=== PATIENT | female | born 1940 | race Caucasian/White ===

== ENCOUNTER 2022-05-02 03:10 | Inpatient (IN) | payer OTHER ==
[~2022-05-02] VITALS: Ht 154.9 cm; Wt 70.1 kg
[2022-05-02] MEDS ORDERED: ALBUTEROL SULF 2.5 MG/0.5ML(0.5%) NEB SOLN NEB ONE ×2 (03:15→03:30)
[2022-05-02] MEDS ORDERED: IPRATROPIUM BROM 0.5 MG/2.5ML INH SOL NEB ONE (03:15)
[2022-05-02] MEDS ORDERED: ALBUTEROL MEDNEB 2.5 mg/3ml NEB ONE (03:18)
[2022-05-02 04:59] LABS: Basophils # (auto) 0 10 ^3/uL (0-0.2); Basophils % (auto) 0.6 % (0.0-2.0); Eosinophils # (auto) 0.1 10 ^3/uL (0-0.8); Eosinophils % (auto) 0.7 % (0.0-7.0); Hematocrit 35.3 % (36.0-46.0); Hemoglobin 12.3 g/dL (12.2-16.2); Lymphocytes # (auto) 1.4 10 ^3/uL (0.4-5.4); Lymphocytes % (auto) 20.3 % (10.0-50.0); Mean Corpuscular Hemoglobin 32.7 pg (28.0-32.0); Mean Corpuscular Hgb Conc. 34.8 g/dL (32.0-36.0); Mean Corpuscular Volume 93.9 fL (80.0-100.0); Monocytes # (auto) 0.5 10 ^3/uL (0-1.3); Neutrophils # (auto) 4.8 10 ^3/uL (1.6-8.6); Neutrophils % (auto) 70.4 % (37.0-80.0); Red Blood Cells 3.76 10^6/uL (4.0-5.20); White Blood Cell 6.9 10^3/uL (4.4-10.8)
[2022-05-02 05:55] LABS: Albumin 3.6 g/dL (3.4-5.0); Calcium 8.8 mg/dL (8.5-10.1); Potassium 3.5 mmol/L (3.5-5.1)
[2022-05-02 06:00] LABS: BUN/Creatinine Ratio 17.8; Total Protein 6.2 g/dL (6.4-8.2)
[2022-05-02] MEDS ORDERED: FUROSEMIDE 40 MG/4 ML VIAL IV ONE (07:00)
[2022-05-02] MEDS ORDERED: ENOXAPARIN SOD 80 MG/0.8ML SYRINGE SC ONE (07:00)
[2022-05-02 08:33] LABS: Urine Bacteria NONE SEEN /hpf (None Seen); Urine Blood Negative /uL (Negative); Urine Specific Gravity 1.012 (1.001-1.035); Urine WBC 2 /hpf (0 - 5)
[2022-05-02] MEDS ORDERED: ROSU1TAB14 PO (12:12)
[2022-05-02] MEDS ORDERED: CARV20CA10 PO (12:12)
[2022-05-02] MEDS ORDERED: LOS25T PO (12:12)
[2022-05-02] MEDS ORDERED: MORPHINE SULFATE INJ 2 MG/ml SYRG IV PRN (12:15)
[2022-05-02] MEDS ORDERED: POTASSIUM EFFERVESENT TAB 25 MEQ PO ONE (12:15)
[2022-05-02] MEDS ORDERED: NITROGLYCERIN 0.4 MG SL TAB SL PRN (12:15)
[2022-05-02] MEDS ORDERED: NICOTINE 7MG/24HR TOPICAL PATCH TD ONE (12:15)
[2022-05-02 12:38] LABS: Cholesterol 88 mg/dL (< 200)
[2022-05-02 12:40] LABS: HDL Cholesterol 43 mg/dL (40-59); LDL Cholesterol 40 mg/dL (< 100); Triglycerides 57 mg/dL (< 150)
[2022-05-02] MEDS ORDERED: DEXTROSE (50%) 50ML SYRG IV PRN (15:15)
[2022-05-02] MEDS: ACCU-CHEK COMFORT CURVE STRIP VI SCH ×2 (17:31→22:09)
[2022-05-02] MEDS: InsuLIN REG 1unit/0.01ml Soln (100units/ml) SC SCH ×2 (17:35→22:00)
[2022-05-02] MEDS: FUROSEMIDE 20 MG/2 ML VIAL IV SCH (17:36)
[2022-05-02] MEDS: CARVEDILOL 3.125 MG TAB PO SCH (22:00)
[2022-05-03 05:26] LABS: Basophils # (auto) 0 10 ^3/uL (0-0.2); Basophils % (auto) 0.8 % (0.0-2.0); Eosinophils # (auto) 0.1 10 ^3/uL (0-0.8); Eosinophils % (auto) 0.9 % (0.0-7.0); Hematocrit 34.2 % (36.0-46.0); Hemoglobin 11.6 g/dL (12.2-16.2); Lymphocytes # (auto) 2.5 10 ^3/uL (0.4-5.4); Lymphocytes % (auto) 41.5 % (10.0-50.0); Mean Corpuscular Hgb Conc. 33.9 g/dL (32.0-36.0); Mean Corpuscular Volume 94.5 fL (80.0-100.0); Monocytes # (auto) 0.7 10 ^3/uL (0-1.3); Monocytes % (auto) 11.1 % (0.0-12.0); Neutrophils # (auto) 2.7 10 ^3/uL (1.6-8.6); Neutrophils % (auto) 45.7 % (37.0-80.0); Nucleated Red Blood Cells % 0.1 %; Red Blood Cells 3.62 10^6/uL (4.0-5.20); Red Cell Distribution Width 15.2 % (11.8-14.3); White Blood Cell 5.9 10^3/uL (4.4-10.8)
[2022-05-03] MEDS: FUROSEMIDE 20 MG/2 ML VIAL IV SCH ×2 (05:56→17:38)
[2022-05-03 06:01] LABS: Calcium 8.8 mg/dL (8.5-10.1); Potassium 3.5 mmol/L (3.5-5.1)
[2022-05-03] MEDS: EMPAGLIFLOZIN 10 MG TAB PO SCH ×2 (06:31→06:38)
[2022-05-03] MEDS: ACCU-CHEK COMFORT CURVE STRIP VI SCH ×5 (06:32→21:56)
[2022-05-03] MEDS: InsuLIN REG 1unit/0.01ml Soln (100units/ml) SC SCH ×4 (06:38→21:57)
[2022-05-03] MEDS ORDERED: REGADENOSON 0.4 MG/5 ML SYRG IV ONE (09:00)
[2022-05-03] MEDS: CARVEDILOL 3.125 MG TAB PO SCH ×2 (09:59→21:29)
[2022-05-03] MEDS ORDERED: FUROSEMIDE 20 MG/2 ML VIAL IV SCH (10:00)
[2022-05-03] MEDS: POTASSIUM CHL 10 Meq TABLET PO SCH (10:00)
[2022-05-03] MEDS: LOSARTAN POTASSIUM 25 MG TAB PO SCH (10:00)
[2022-05-03] MEDS ORDERED: CARVEDILOL PHOSPHATE PO SCH (10:00)
[2022-05-03] MEDS ORDERED: PATIENTS OWN MEDICATION (Rosuvastatin Calcium 1 TAB) PO SCH (10:00)
[2022-05-03] MEDS: NICOTINE 7MG/24HR TOPICAL PATCH TD SCH (10:00)
[2022-05-03] MEDS: ENOXAPARIN SOD 40 MG/0.4 ML SYRINGE SC SCH (10:04)
[2022-05-03] MEDS: ASPirin 81 mg TAB PO SCH (10:06)
[2022-05-03 13:03] VITALS: BP 109/61
[2022-05-03 20:00] VITALS: BP 89/50
[2022-05-03 22:00] VITALS: BP 106/42
[2022-05-03] MEDS ORDERED: CARV20CA10 PO (23:23)
[2022-05-03] MEDS ORDERED: MELO1TAB56 PO (23:23)
[2022-05-03] MEDS ORDERED: POTA10TA51 PO (23:23)
[2022-05-03] MEDS ORDERED: ROSU20TA14 PO (23:23)
[2022-05-03] MEDS ORDERED: NITR0.4S29 SL (23:23)
[2022-05-03] MEDS ORDERED: FURO40TA4 PO (23:23)
[2022-05-03] MEDS ORDERED: ASPI-543 PO (23:23)
[2022-05-03] MEDS ORDERED: ALBUAER3 IN (23:23)
[2022-05-04] VITALS (11 sets, daily range): BP systolic 94–131; BP diastolic 47–74
[2022-05-04] MEDS: FUROSEMIDE 20 MG/2 ML VIAL IV SCH ×2 (05:29→18:00)
[2022-05-04] MEDS: EMPAGLIFLOZIN 10 MG TAB PO SCH ×2 (06:28→06:38)
[2022-05-04 06:42] LABS: INR 1.13 (0.9-1.15); Partial Thromboplastin Time 33.1 sec (24.6-33.4)
[2022-05-04] MEDS: ACCU-CHEK COMFORT CURVE STRIP VI SCH ×4 (06:55→22:17)
[2022-05-04] MEDS: InsuLIN REG 1unit/0.01ml Soln (100units/ml) SC SCH ×4 (06:55→22:00)
[2022-05-04 06:57] LABS: Anion Gap 8 (5-15); BUN/Creatinine Ratio 20.9; Blood Urea Nitrogen 14 mg/dL (7-18); Carbon Dioxide 26 mmol/L (21-32); Chloride 109 mmol/L (98-107); GFR African American 108 mL/min; GFR Non-African American 90 mL/min; Glucose 110 mg/dL (74-106); Potassium 3.3 mmol/L (3.5-5.1); Sodium 143 mmol/L (136-145)
[2022-05-04] MEDS ORDERED: POTASSIUM CHL 20 Meq TABLET PO ONE ×2 (09:30→15:00)
[2022-05-04] MEDS: POTASSIUM CHL 10 Meq TABLET PO SCH (10:00)
[2022-05-04] MEDS: CARVEDILOL 3.125 MG TAB PO SCH ×2 (10:00→22:00)
[2022-05-04] MEDS: NICOTINE 7MG/24HR TOPICAL PATCH TD SCH (10:00)
[2022-05-04] MEDS: ASPirin 81 mg TAB PO SCH (10:00)
[2022-05-04] MEDS: ENOXAPARIN SOD 40 MG/0.4 ML SYRINGE SC SCH (10:00)
[2022-05-04] MEDS: LOSARTAN POTASSIUM 25 MG TAB PO SCH (10:00)
[2022-05-04 10:50] LABS: Basophils # (auto) 0.1 10 ^3/uL (0-0.2); Basophils % (auto) 1.2 % (0.0-2.0); Eosinophils # (auto) 0.1 10 ^3/uL (0-0.8); Eosinophils % (auto) 1.4 % (0.0-7.0); Hematocrit 36.5 % (36.0-46.0); Hemoglobin 12.4 g/dL (12.2-16.2); Lymphocytes % (auto) 45.1 % (10.0-50.0); Mean Corpuscular Hemoglobin 31.6 pg (28.0-32.0); Monocytes # (auto) 0.5 10 ^3/uL (0-1.3); Monocytes % (auto) 12.5 % (0.0-12.0); Neutrophils # (auto) 1.7 10 ^3/uL (1.6-8.6); Neutrophils % (auto) 39.8 % (37.0-80.0); Nucleated Red Blood Cells % 0.3 %; Red Blood Cells 3.92 10^6/uL (4.0-5.20); Red Cell Distribution Width 15.2 % (11.8-14.3); White Blood Cell 4.3 10^3/uL (4.4-10.8)
[2022-05-04] MEDS ORDERED: LIDOCAINE 2%HCL (LOCAL ANESTH.) INJ 20ML MDV ONE (15:41)
[2022-05-04] MEDS ORDERED: IODIXANOL 320MG/ML 100ML BTL IV ONE (15:47)
[2022-05-04] MEDS ORDERED: SODIUM CHL 0.9% 0 ML ONE (16:02)
[2022-05-04] MEDS ORDERED: ANGIOMAX 250 MG VIAL IV ONE (16:02)
[2022-05-04] MEDS ORDERED: MIDAZOLAM HCL 2MG/2ML 2ml VIAL (1mg/ml) ONE (16:02)
[2022-05-04] MEDS ORDERED: fentaNYL CITRATE 100 MCG/2 ML VL ONE (16:03)
[2022-05-05 05:00] VITALS: BP 136/47
[2022-05-05] MEDS: FUROSEMIDE 20 MG/2 ML VIAL IV SCH ×2 (06:00→18:00)
[2022-05-05] MEDS: ACCU-CHEK COMFORT CURVE STRIP VI SCH ×3 (06:29→17:00)
[2022-05-05] MEDS: InsuLIN REG 1unit/0.01ml Soln (100units/ml) SC SCH ×3 (06:29→17:00)
[2022-05-05] MEDS: EMPAGLIFLOZIN 10 MG TAB PO SCH (06:29)
[2022-05-05] MEDS: ASPirin 81 mg TAB PO SCH (08:59)
[2022-05-05] MEDS: POTASSIUM CHL 10 Meq TABLET PO SCH (09:00)
[2022-05-05] MEDS: ENOXAPARIN SOD 40 MG/0.4 ML SYRINGE SC SCH (09:00)
[2022-05-05 09:08] VITALS: BP 116/50
[2022-05-05] MEDS: NICOTINE 7MG/24HR TOPICAL PATCH TD SCH (10:00)
[2022-05-05] MEDS: LOSARTAN POTASSIUM 25 MG TAB PO SCH (10:00)
[2022-05-05] MEDS: CARVEDILOL 3.125 MG TAB PO SCH (10:00)
[2022-05-05 10:29] LABS: BUN/Creatinine Ratio 20.7; Potassium 3.7 mmol/L (3.5-5.1)
[2022-05-05 13:00] VITALS: BP 91/51
[2022-05-05 16:56] VITALS: BP 136/49
[2022-05-05 17:00] VITALS: BP 97/57
== END 2022-05-05 20:30 | disposition short-term general hospital (02) | DRG 282 ==
LOC: ER 03:10 → TELE 12:06 → TELE-CENTR 05-03 11:55 → TELE-E-ADS 05-03 12:30 → TELE-CENTR 05-03 19:56
PROVIDERS: ADMIT Registered Nurse; ATTEND Internal Medicine
PROC: 4A023N8 Measurement of Cardiac Sampling and Pressure, Bilateral, Percutaneous Approach (ICD-10-PCS; principal; 2022-05-04)
PROC: B211YZZ Fluoroscopy of Multiple Coronary Arteries using Other Contrast (ICD-10-PCS; 2022-05-04)
PROC: B215YZZ Fluoroscopy of Left Heart using Other Contrast (ICD-10-PCS; 2022-05-04)
DX: I50.43 Acute on chronic combined systolic (congestive) and diastolic (congestive) heart failure (principal); I21.A1 Myocardial infarction type 2; E78.5 Hyperlipidemia, unspecified; E11.9 Type 2 diabetes mellitus without complications; I35.0 Nonrheumatic aortic (valve) stenosis; I25.10 Atherosclerotic heart disease of native coronary artery without angina pectoris; Z20.822 Contact with and (suspected) exposure to COVID-19; R04.0 Epistaxis; Z96.649 Presence of unspecified artificial hip joint; Z72.0 Tobacco use; Z98.61 Coronary angioplasty status; Z71.6 Tobacco abuse counseling
CPT/HCPCS: 36415; 71045; 71275; 80048; 80053; 80061; 81001; 82306; 82962; 83036; 83735; 83880; 84443; 84484; 85025; 85379; 85610; 85730; 86850; 86900; 86901; 87426; 87804; 93005; 93306; 93460; 93970; 94640; 96372; 96374; 99152; 99153; 99291; C1751; G0378; J1815; J2250; Q9967

== ENCOUNTER 2024-12-16 20:52 | Inpatient (IN) | payer OTHER ==
[~2024-12-16] VITALS: Ht 157.5 cm; Wt 62.6 kg
[~2024-12-16 20:52] MED LIST: ALBUAER3 IN; ASPI-543 PO; CARV-217 PO; CARV20CA10 PO; DULO1CAP4 PO; FURO40TA4 PO; LOS25T PO; MELO15TA29 PO; NITR0.4S29 SL; POTA-36 PO; ROSU20TA14 PO; ROSU20TA56 PO
[2024-12-16 21:45] VITALS: O2SAT 95
[2024-12-16] MEDS: methylPREDNISolone SOD SUCC 125 MG/2 ML VL IV ONE (21:57)
[2024-12-16 22:05] LABS: Hematocrit 35.0 % (36.0-46.0); Hemoglobin 11.8 g/dL (12.2-16.2); Mean Corpuscular Hemoglobin 29.4 pg (28.0-32.0); Mean Corpuscular Volume 87.2 fL (80.0-100.0); Nucleated Red Blood Cells % 0.1 %
[2024-12-16] MEDS: IPRATROPIUM BROM 0.5 MG/2.5ML INH SOL NEB ONE (22:10)
[2024-12-16] MEDS: ALBUTEROL SULF 2.5 MG/0.5ML(0.5%) NEB SOLN NEB ONE (22:10)
[2024-12-16 22:14] LABS: Sodium 144 mmol/L (136-145)
[2024-12-16 22:15] LABS: Anion Gap 10 (5-15); Calcium 8.3 mg/dL (8.7-10.4); Carbon Dioxide 25 mmol/L (20-31); Chloride 109 mmol/L (98-107); Potassium 3.0 mmol/L (3.5-5.1)
[2024-12-16 22:23] LABS: BUN/Creatinine Ratio 7.8 (10.0-20.0); Blood Urea Nitrogen < 5 mg/dL (9-23); Glucose 138 mg/dL (74-106)
--- NOTE | 2024-12-16 23:02 | DVH ---
CHEST RADIOGRAPH Indication: sob Technique: 1 view Comparison: CXR1 on DOS: 05/02/22, CHEST XRAY 1 VIEW on DOS: 05/02/22 FINDINGS: Lines and Tubes: External leads. Lungs/Pleura: The right hand overlies the lower chest. Persistent dense mid to basilar interstitial opacities. No focal consolidation. No evident pleural abnormality. Cardiomediastinum: Upper normal heart size. Aortic atherosclerosis. Other: No acute osseous abnormality. IMPRESSION: No acute cardiopulmonary abnormality within the exam limitation. Chronic dense bilateral interstitial opacities may represent edema or fibrosis given similar appearance to 2022.
--- NOTE | 2024-12-16 23:11 | ED.PDOC ---
History of Present Illness HPI Comments 84 y/o F presents with c/c left sided chest and upper abdominal pain, nausea, and vomiting. Significant history of aortic stenosis, CAD, CHF, DM, HLD, NSTEMI II, PTCA, LHC, and tobacco cigarette use. Symptoms began, suddenly and unprovoked, at a 1730, this evening. No modifying factors. No reported recent tr auma, injuries, sick contact, travel, stressors, strenuous activities, or pertinent history or events. Denial of any shortness of breath, palpitations, nausea, vomiting, or further associated symptoms. Chief Complaint: Chest Pain Time Seen by MD: 21:30 Reviewed Notes: Nurses Notes, Medications, Allergies Allergies: Coded Allergies: NO KNOWN ALLERGIES (Unverified , 05/02/22) Home Meds Reported Medications Carvedilol Phosphate (Coreg Cr) 20 Mg Cap, 20 MG PO DAILY, CAP 05/03/22 Rosuvastatin Calcium (Crestor) 20 Mg Tab, 1 TAB PO DAILY, #90 TAB 1 Refill 05/03/22 Meloxicam (Meloxicam) 15 Mg Tab, 15 MG PO DAILY, TAB 05/03/22 Potassium Chloride (POTASSIUM CHLORIDE CR) 10 Meq Tb, 10 MEQ PO, TAB 05/03/22 Furosemide (Furosemide) 40 Mg Tab, 40 MG PO, TAB 05/03/22 Nitroglycerin (NTROSTAT SUBLINGUAL) 0.4 Mg Sl, 0.4 MG SL PRN, TAB *MAY REPEAT EVERY 5 MINUTES X 3 TOTAL IF NO RELIEF, INITIATE ANALGESIC THERAPY. NOTIFY PHYSICIAN *Do not crush. 05/03/22 Albuterol Sulfate (VENTOLIN MDI) 90 Mcg Ih, 90 MCG IN Q6HP PRN for Difficulty to breath for 30 Days, MCG 05/03/22 Aspirin (Aspir-Low) 81 Mg Tab, 81 MG PO DAILY for 30 Days, MG 05/03/22 Losartan Potassium (Losartan Potassium) 25 Mg Tab, 0.5 TAB PO DAILY 05/02/22 Rosuvastatin Calcium (Rosuvastatin Calcium) 20 Mg Tab, 1 TAB PO DAILY 05/02/22 Carvedilol Phosphate (Coreg Cr) 20 Mg Cap, 1 CAP PO DAILY 05/02/22 Information Source: Patient Mode of Arrival: Ambulatory Severity: Moderate Timing: Hours Duration: Since onset Prehospital treatment: None Past Medical History PAST MEDICAL HISTORY: CAD, CHF (chronic systolic/diastolic heart failure- Lasix), DM, High Lipids, [place] (NSTEMI II ) Past Medical History (Other): Aortic stenosis Surgical History: PTCA Surgical History (Other): C DINING ROOM MAID History: Denies all DINING ROOM MAID Hx Family History Family History: Unknown Social History Smoker: Cigarettes Alcohol: Denies ETOH Use Drugs: Denies Drug Use Lives In: Home All Other Systems: Reviewed and Negative (Comprehensive systems review obtained and negative except for what is stated in the HPI) Physical Exam General Appearance: Moderate Distress HEENT: Normal ENT Inspection, Pharynx Normal, TMs Normal Neck: Full Range of Motion, Non-Tender, Normal, Normal Inspection Respiratory: Other (Coarse breath sounds) Cardiovascular: Tachycardia Breast Exam: Deferred Gastrointestinal: No Organomegaly, Non Tender, No Pulsatile Mass, Normal Bowel Sounds, Soft Genitalia: Deferred Pelvic: Deferred Rectal: Deferred Extremities: No calf tenderness, Normal capillary refill, Non-tender, No pedal edema Musculoskeletal : Apperance: Normal Neurologic: Alert, 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 Was a procedure done?: No EKG EKG #1: Pulse Rate (adult): 103 [place]: Normal Cardiac Rhythm: ST Block: None Hypertrophy: None ST: Normal EKG #2: Pulse Rate (adult): 88 [place]: Normal Cardiac Rhythm: NSR Block: None Hypertrophy: None ST: Normal Differential Dx Considerations may include: [place], PE, ACS, URI, PNA, angina, anxiety, acute CHF exacerbation, among others X-Ray, Labs, Meds, VS Vital Signs Date Time Temp Pulse Resp B/P (MAP) Pulse Ox O2 Delivery O2 Flow Rate FiO2 12/16/24 23:52 89 12/16/24 23:11 88 12/16/24 22:00 18 100 Nasal Cannula* 4 36 12/16/24 21:49 88 12/16/24 21:45 97.5 96 14 145/76 (99) 95 97.5 12/16/24 21:45 98.2 96 14 145/76 (99) 95 98.2 12/16/24 21:45 95 Nasal Cannula* 6 44 12/16/24 21:36 103 12/16/24 20:59 103 12/16/24 20:55 98.3 101 18 113/68 84 98.3 Lab Test 12/16/24 23:08 12/16/24 21:52 Range/Units Troponin I High Sensitivity 66 *H 44 *H </=34 ng/L White Blood Count 5.0 4.4-10.8 10^3/uL Red Blood Count 4.01 4.0-5.20 10^6/uL Hemoglobin 11.8 L 12.2-16.2 g/dL Hematocrit 35.0 L 36.0-46.0 % Mean Corpuscular Volume 87.2 80.0-100.0 fL Mean Corpuscular Hemoglobin 29.4 28.0-32.0 pg Mean Corpuscular Hemoglobin Concent 33.7 32.0-36.0 g/dL Red Cell Distribution Width 16.7 H 11.8-14.3 % Platelet Count 160 140-450 10^3/uL Mean Platelet Volume 8.8 6.9-10.8 fL Neutrophils (%) (Auto) 63.5 37.0-80.0 % Lymphocytes (%) (Auto) 23.2 10.0-50.0 % Monocytes (%) (Auto) 12.1 H 0.0-12.0 % Eosinophils (%) (Auto) 0.3 0.0-7.0 % Basophils (%) (Auto) 0.9 0.0-2.0 % Neutrophils # (Auto) 3.2 1.6-8.6 10 ^3/uL Lymphocytes # (Auto) 1.2 0.4-5.4 10 ^3/uL Monocytes # (Auto) 0.6 0-1.3 10 ^3/uL Eosinophils # (Auto) 0 0-0.8 10 ^3/uL Basophils # (Auto) 0 0-0.2 10 ^3/uL Nucleated Red Blood Cells 0.1 % Sodium Level 144 136-145 mmol/L Potassium Level 3.0 L 3.5-5.1 mmol/L Chloride Level 109 H 98-107 mmol/L Carbon Dioxide Level 25 20-31 mmol/L Anion Gap 10 5-15 Blood Urea Nitrogen < 5 L 9-23 mg/dL Creatinine 0.64 0.550-1.02 mg/dL Glomerular Filtration Rate Calc 87 >90 mL/min BUN/Creatinine Ratio 7.8 L 10.0-20.0 Serum Glucose 138 H 74-106 mg/dL Calcium Level 8.3 L 8.7-10.4 mg/dL Current Medications Medications (Trade) Dose Ordered Sig/Jeff Route Start Time Stop Time Status Last Admin Methylprednisolone Sodium Succinate (Solu Medrol) 125 mg ONCE ONCE IV 12/16/24 21:45 12/16/24 21:46 DC 12/16/24 21:57 Albuterol (Ventolin Medneb) 5 mg ONCE ONCE NEB 12/16/24 21:45 12/16/24 21:46 DC 12/16/24 22:10 Ipratropium [place] (Atrovent Medneb) 0.5 mg ONCE ONCE NEB 12/16/24 21:45 12/16/24 21:46 DC 12/16/24 22:10 Enoxaparin Sodium (Lovenox) 60 mg ONCE ONCE SC 12/17/24 00:00 12/17/24 00:01 DC 12/17/24 00:07 [place] [address] Ph: [phone] DIAGNOSTIC IMAGING Diagnostic Imaging Report : [id number] Signed PATIENT: KATHY ZAPATA ACCT: [id number] UNIT: [id number] : 1940 LOC: ER ROOM / BED: / AGE / SEX: 84 / F ADM STATUS: REG ER SERVICE 33 ORDERING PHYSICIAN: PHILLIP REZA MD PROCEDURE(s): CXRP - CHEST PORTABLE REASON: sob ORDER NUMBER(s): [id number], ACCESSION NUMBER(s): [id number] CHEST RADIOGRAPH Indication: sob Technique: 1 view Comparison: CXR1 on DOS: 05/02/22, CHEST XRAY 1 VIEW on DOS: 05/02/22 FINDINGS: Lines and Tubes: External leads. Lungs/Pleura: The right hand overlies the lower chest. Persistent dense mid to basilar interstitial opacities. No focal consolidation. No evident pleural abnormality. Cardiomediastinum: Upper normal heart size. Aortic atherosclerosis. Other: No acute osseous abnormality. IMPRESSION: No acute cardiopulmonary abnormality within the exam limitation. Chronic dense bilateral interstitial opacities may represent edema or fibrosis given similar appearance to 2022. ATED BY: CLARISSE DILLARD MD DICTATED DATE/TIME: 12/16/242258 SIGNED BY: CLARISSE DILLARD MD SIGNED DATE/TIME: 12/16/242258 CC: Patient alert. Complaining of shortness a breath. Placed on oxygen. Answering questions. History of coronary artery disease. Was given steroid. Was given breathing treatment. Cardiac marker slightly elevated. EKG does show changes. Cardiology consultation. Explained to the patient. Continue monitoring. [facility] approved inpatient admission [id number]. Time of 1ST Reevaluation: 22:00 Reevaluation 1ST: Unchanged Patient Education/Counseling: Diagnosis, Treatment, Other (need for admission ) Family Education/Counseling: No Family Present SEPSIS Sepsis Screen Date sepsis recognized/suspect: Dec 16, 2024 Time Sepsis recognized/suspect: 2144 Recent Procedure: No On Antibiotic Therapy: No Respiratory Rate >20: No Heart Rate >90: No Temp<36 C (96.8 F) or >38.3 C: No SBP <90 or MAP <65 mmHG: No New Acute Mental Status Change: No Is the patient on CPAP, BIPAP,: No Physician Orders Chest Portable (12/16/24 21:34) Urinalysis (12/16/24 21:34) Troponin-I Hs (12/17/24 00:34) Electrocardigram (12/16/24 21:57) Electrocardigram (12/16/24 22:57) Electrocardigram (12/17/24 00:57) * Cardiology Consult (12/16/24 23:58) Vital Signs Date Time Temp Pulse Resp B/P (MAP) Pulse Ox O2 Delivery O2 Flow Rate FiO2 12/16/24 23:52 89 12/16/24 23:11 88 12/16/24 22:00 18 100 Nasal Cannula* 4 36 12/16/24 21:49 88 12/16/24 21:45 97.5 96 14 145/76 (99) 95 97.5 12/16/24 21:45 98.2 96 14 145/76 (99) 95 98.2 12/16/24 21:45 95 Nasal Cannula* 6 44 12/16/24 21:36 103 12/16/24 20:59 103 12/16/24 20:55 98.3 101 18 113/68 84 98.3 Laboratory Tests Test 12/16/24 21:52 White Blood Count 5.0 10^3/uL (4.4-10.8) Medications Medications Dose Ordered Sig/Jeff Route Start Time Stop Time Status Last Admin Dose Admin Albuterol 5 mg ONCE ONCE NEB 12/16/24 21:45 12/16/24 21:46 DC 12/16/24 22:10 Enoxaparin Sodium 60 mg ONCE ONCE SC 12/17/24 00:00 12/17/24 00:01 DC 12/17/24 00:07 Ipratropium [place] 0.5 mg ONCE ONCE NEB 12/16/24 21:45 12/16/24 21:46 DC 12/16/24 22:10 Methylprednisolone Sodium Succinate 125 mg ONCE ONCE IV 12/16/24 21:45 12/16/24 21:46 DC 12/16/24 21:57 Departure 1 Departure Time of Disposition: 23:46 Impression: Primary Impression: Acute respiratory distress Additional Impressions: Demand ischemia CHF (congestive heart failure) Qualified Codes: I50.9 - Heart failure, unspecified Disposition: ADMITTED INPATIENT Admit to: ICU Condition: Guarded Critical Care Note Critical Care Time?: Yes (90 min-critical care time only) Stability Stability form required: No Heart Score Heart Score: Heart Score Response (Comments) Value History Moderate Suspicious 1 EKG Normal 0 Age >65 2 Risk Factors >3 or Hx ASHD 2 Troponin 1-2 x's Normal limit 1 Total 6 I personally scribed for PHILLIP REZA MD ([email or web address]) on 12/16/24 at 23:11. Electronically submitted by Parker Luz ([email or web address]). I personally scribed for PHILLIP REZA MD ([email or web address]) on 12/16/24 at 23:18. Electronically submitted by Parker Luz ([email or web address]). PHILLIP REZA MD Dec 16, 2024 23:11
[2024-12-17] VITALS (12 sets, daily range): BP systolic 113–145; BP diastolic 67–75; PULSE 63–93; RESP 16–24; TEMP 97.5–98.2; O2SAT 94–100
[2024-12-17] MEDS: ENOXAPARIN SOD 60 MG/0.6 ML SYRINGE SC ONE (00:07)
--- NOTE | 2024-12-17 00:13 | DVHINCON2 ---
Date of service: Dec 16, 2024 Referring Physician Florinda Reason for Consultation STEMI History of Present Illness This is a 84 year old female with a PMH of CHF, High Lipids who presented to the ED with complaints of left sided chest pain with associated upper abdominal pain with N/V. Symptoms began, suddenly and unprovoked, at a 1730, this evening. Denies ay associated symptoms. Troponin 44 > 46. K 3.0. Chest x-ray shows no acute cardiopulmonary abnormality within the exam limitation. Chronic dense bilateral interstitial opacities may represent edema or fibrosis given similar appearance to 2022. Patient was admitted to the hospital. I am asked to consult on this patient. Family History: FHx: dementia G8 FATHER FHx: heart disease G8 MOTHER G8 BROTHER G8 SISTER Allergies: Coded Allergies: NO KNOWN ALLERGIES (Unverified , 05/02/22) Home Meds Reported Medications Carvedilol Phosphate (Coreg Cr) 20 Mg Cap, 20 MG PO DAILY, CAP 05/03/22 Rosuvastatin Calcium (Crestor) 20 Mg Tab, 1 TAB PO DAILY, #90 TAB 1 Refill 05/03/22 Meloxicam (Meloxicam) 15 Mg Tab, 15 MG PO DAILY, TAB 05/03/22 Potassium Chloride (POTASSIUM CHLORIDE CR) 10 Meq Tb, 10 MEQ PO, TAB 05/03/22 Furosemide (Furosemide) 40 Mg Tab, 40 MG PO, TAB 05/03/22 Nitroglycerin (NTROSTAT SUBLINGUAL) 0.4 Mg Sl, 0.4 MG SL PRN, TAB *MAY REPEAT EVERY 5 MINUTES X 3 TOTAL IF NO RELIEF, INITIATE ANALGESIC THERAPY. NOTIFY PHYSICIAN *Do not crush. 05/03/22 Albuterol Sulfate (VENTOLIN MDI) 90 Mcg Ih, 90 MCG IN Q6HP PRN for Difficulty to breath for 30 Days, MCG 05/03/22 Aspirin (Aspir-Low) 81 Mg Tab, 81 MG PO DAILY for 30 Days, MG 05/03/22 Losartan Potassium (Losartan Potassium) 25 Mg Tab, 0.5 TAB PO DAILY 05/02/22 Rosuvastatin Calcium (Rosuvastatin Calcium) 20 Mg Tab, 1 TAB PO DAILY 05/02/22 Carvedilol Phosphate (Coreg Cr) 20 Mg Cap, 1 CAP PO DAILY 05/02/22 Review of Systems Constitutional: denies: chills, diaphoresis, fatigue, fever, malaise, sweats, weakness, others EENTM: denies: blurred vision, double vision, ear bleeding, ear discharge, ear drainage, ear pain, ear ringing, eye pain, eye redness, hearing loss, mouth pain, mouth swelling, nasal discharge, nose congestion, nose pain, photophobia, tearing, throat pain, throat swelling, voice changes, others Respiratory: reports: SOB at rest, shortness of breath, SOB with excertion; denies: cough, hemoptysis, orthopnea, stridor, wheezing, others Cardiovascular: reorts: chest pain, dizzy spells, diaphoresis, Dyspnea on exertion, edema, irregular heart beat, left arm pain, lightheadedness, palpitations, PND, syncope, others Gastrointestinal: denies: abdomen distended, abdominal pain, blood streaked bowels, constipated, diarrhea, dysphagia, difficulty swallowing, hematemesis, melena, nausea, poor appetite, poor fluid intake, rectal bleeding, rectal pain, vomiting, others Genitourinary: denies: abnormal vagina bleeding, burning, dyspareunia, dysuria, flank pain, frequency, hematuria, incontinence, pain, , vagina discharg e, urgency, others Neurological: denies: dizziness, fainting, headache, left sided numbness, left sided weakness, numbness, paresthesia, pre-existing deficit, right sided numbness, right sided weakness, seizure, speech problems, tingling, tremors, weakness, others Musculoskeletal: denies: back pain, gout, joint pain, joint swelling, muscle pain, muscle stiffness, neck pain, others Integumetry: denies: bruises, change in color, change in hair/nails, dryness, laceration, lesions, lumps, rash, wounds, others Allergic/Immunocompromised: denies: Difficulty Healing, Frequent Infections, Hives, Itching, others Hematologic/Lymphatic: denies: anemia, blood clots, easy bleeding, easy bruising, swollen glands, others Endocrine: denies: excessive hunger, excessive sweating, excessive thirst, excessive urination, flushing, intolerance to cold, intolerance to heat, unexplained weight gain, unexplained weight loss, others Psychiatric: denies: anxiety, bipolar disorder, depression, hopeless, panic d isorder, schizophrenia, sleepless, suicidal, others All Other Systems: Reviewed and Negative Vital Signs Vital Signs Date Time Temp Pulse Resp B/P (MAP) Pulse Ox O2 Delivery O2 Flow Rate FiO2 12/16/24 21:49 88 12/16/24 21:45 97.5 14 145/76 (99) 95 97.5 Physical Exam GENERAL: Alert and oriented x 3. No acute distress. EYES: PERRL, EOMI. Anicteric. HENT: Moist mucous membranes. LUNGS: Clear to auscultation bilaterally. CARDIOVASCULAR: Regular rate and rhythm. ABDOMEN: Soft, nontender and nondistended. EXTREMITIES: No edema. NEUROLOGIC: No focal neurological deficits. SKIN: Warm, dry. Labs/Diagnostic Data Labs Test 12/16/24 21:52 Range/Units Assessment Elevated troponin. Chest pain. Plan/Recommendation I agree with your ongoing assessment and care of plan. Trend troponin. DVT prophylactics. Additional plan as per the hospital course. A total of 45 minutes was spent reviewing the patient record, examining the patient, making a diagnostic and therapeutic plan, discussing this plan with medical personnel, following up on diagnostic studies and following the patient for clinical stability excluding any and all procedures. At least 50% of this time was spent in direct, [id number] contact. Plan discussed with: Patient RUTH BRODY MD Dec 16, 2024 22:06
[2024-12-17] MEDS: ONDANSETRON HCL 4 MG/2 ML VIAL IV ONE (01:30)
[2024-12-17] MEDS: MORPHINE SULFATE 4 MG/ML SYR/VIAL IV ONE (01:30)
--- NOTE | 2024-12-17 01:38 | ECG ---
[facility] Test Date: 2024-12-16 Test Time: 23:52:05 Pat Name: KATHY ZAPATA Department: [facility] ED Patient ID: [id number] Room: 0205T Gender: F Oncology Social Worker: EFREN : 1940 Requested By: PHILLIP REZA Order Number: [id number] Reading MD: Bhavesh Akbar Measurements Intervals [place] Rate: 89 P: 88 MD: 205 QRS: 28 QRSD: 155 T: 179 QT: 411 QTc: 501 Interpretive Statements Sinus rhythm Left bundle branch block Electronically Signed On 12-22-2024 20:24:18 PDT by Bhavesh Akbar Please click the below link to view image of tracing.
--- NOTE | 2024-12-17 01:38 | ECG ---
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
[2024-12-17] MEDS ORDERED: DEXTROSE (50%) 50ML SYRG IV PRN (02:15)
[2024-12-17] MEDS ORDERED: NITROGLYCERIN 0.4 MG SL TAB SL PRN (02:15)
[2024-12-17] MEDS ORDERED: ONDANSETRON HCL 4 MG/2 ML VIAL IV PRN (02:15)
[2024-12-17] MEDS ORDERED: ACETAMINOPHEN 325 MG TAB PO PRN (02:15)
[2024-12-17] MEDS ORDERED: MORPHINE SULFATE INJ 2 MG/ml SYRG IV PRN (02:15)
[2024-12-17] MEDS ORDERED: HYDROcodone-ACET 5/325MG TAB PO PRN (02:15)
[2024-12-17] MEDS: POTASSIUM CHL 20MEQ/100ML 100 ML IV SCH (02:15)
[2024-12-17] MEDS ORDERED: DOCUSATE SOD 100 MG CAP PO PRN (02:15)
--- NOTE | 2024-12-17 02:19 | DVHHP2 ---
History of Present Illness Reason for Visit: Acute respiratory distress History of Present Illness The patient is a 84-year-old female with past medical history of DE, NSTEMI, hyperlipidemia, CHF, DM, Coronary artery disease, and aortic stenosis who presented to [facility] with complaint of left-sided chest pain. Patient reports she has been experiencing chest pain radiating to her upper abdomen, associated with nausea and vomiting. Patient was seen and evaluated in the ED, laboratory data shows WBC 5.0, platelets 160, sodium 144, potassium 3.0, BUN 5, creatinine 0.64, GFR 87, glucose 138, calcium 8.3, BNP 1195.46, troponin 88, blood pressure 144/76, heart rate 88, temperature 97.6 F, O2 saturation 99% on oxygen. Chest x-ray show no acute cardiopulmonary abnormality; chronic dense bilateral interstitial opacities may represent edema or fibrosis given similar appearance to 2022. Please see medication orders section in the computer. On my assessment, patient denied chest pain at this moment, no dizziness, no headache, diaphoresis, currently on oxygen, no diarrhea, nausea, vomiting, no fever, no chills. Patient was admitted for further evaluation and medical management. Past Medical History CAD, CHF, DM, High Lipids, DE (NSTEMI II ), Aortic stenosis Past Surgical History PTCA, Family History Reviewed, noncontributory to the management of this case. Past Social History The patient lives at home, smokes cigarettes, denies alcohol or illicit drugs abuse. Review of Systems Constitutional: Yes: Weakness; No: Fever, Chills, Sweats, Malaise, Other Eyes: No: Pain, Vision change, Conjunctivae inflammation, Eyelid inflammation, Other, Redness ENT: No: Ear pain, Ear discharge, Nose pain, Nose discharge, Nose congestion, Mouth pain, Mouth swelling, Throat pain, Throat swelling, Other Respiratory: No: Cough, Dry, Shortness of breath, SOB with excertion, Wheezing, Hemoptysis, Pleuritic Pain, Sputum, Wheezing, Other Cardiovascular: Chest Pain; No: Palpitations, Orthopnea, Paroxysmal Noc. D yspnea, Edema, Lt Headedness, Other Gastrointestinal: Abdominal Pain; No: Nausea, Vomiting, Diarrhea, Constipation, Melena, Hematochezia, Other Genitourinary: No Dysuria, No Frequency, No Incontinence, No Hematuria, No Retention, No Other Musculoskeletal: No: other, neck pain, shoulder pain, arm pain, back pain, hand pain, leg pain, foot pain Skin: No: Rash, Lesions, Jaundice, Bruising, Other Neurological: No: Weakness, Numbness, Incoordination, Change in speech, Confusion, Seizures, Other Allergies: Coded Allergies: NO KNOWN ALLERGIES (Unverified , 05/02/22) Exam Vital Signs Vital Signs Date Time Temp Pulse Resp B/P (MAP) Pulse Ox O2 Delivery O2 Flow Rate FiO2 12/16/24 23:52 89 12/16/24 22:00 18 100 Nasal Cannula* 4 36 12/16/24 21:45 97.5 145/76 (99) 97.5 General Appearance: Alert, Oriented X3, Cooperative, No acute distress HEENT: Atraumatic, PERRLA, EOMI, Mucous membr. moist/pink Respiratory: Normal air movement Cardiovascular: Regular rate, Normal S1, Normal S2, No murmurs Abdominal: Normal bowel sounds, Soft, No tenderness, No hepatospenomegaly, No masses Extremities: No clubbing, No cyanosis, No edema, Normal pulses, No tenderness/swelling Skin: No rashes, No breakdown, No significant lesion Neuro: Normal speech, Normal tone, Sensation intact, Cranial nerves 3-12 NL, Reflexes 2+ Psych/Mental Status: Mental status NL, Mood NL Labs/Xrays Labs Test 12/17/24 00:30 12/16/24 21:52 Range/Units Troponin I High Sensitivity 88 *H </=34 ng/L White Blood Count 5.0 4.4-10.8 10^3/uL Red Blood Count 4.01 4.0-5.20 10^6/uL Hemoglobin 11.8 L 12.2-16.2 g/dL Hematocrit 35.0 L 36.0-46.0 % Mean Corpuscular Volume 87.2 80.0-100.0 fL Mean Corpuscular Hemoglobin 29.4 28.0-32.0 pg Mean Corpuscular Hemoglobin Concent 33.7 32.0-36.0 g/dL Red Cell Distribution Width 16.7 H 11.8-14.3 % Platelet Count 160 140-450 10^3/uL Mean Platelet Volume 8.8 6.9-10.8 fL Neutrophils (%) (Auto) 63.5 37.0-80.0 % Lymphocytes (%) (Auto) 23.2 10.0-50.0 % Monocytes (%) (Auto) 12.1 H 0.0-12.0 % Eosinophils (%) (Auto) 0.3 0.0-7.0 % Basophils (%) (Auto) 0.9 0.0-2.0 % Neutrophils # (Auto) 3.2 1.6-8.6 10 ^3/uL Lymphocytes # (Auto) 1.2 0.4-5.4 10 ^3/uL Monocytes # (Auto) 0.6 0-1.3 10 ^3/uL Eosinophils # (Auto) 0 0-0.8 10 ^3/uL Basophils # (Auto) 0 0-0.2 10 ^3/uL Nucleated Red Blood Cells 0.1 % Sodium Level 144 136-145 mmol/L Potassium Level 3.0 L 3.5-5.1 mmol/L Chloride Level 109 H 98-107 mmol/L Carbon Dioxide Level 25 20-31 mmol/L Anion Gap 10 5-15 Blood Urea Nitrogen < 5 L 9-23 mg/dL Creatinine 0.64 0.550-1.02 mg/dL Glomerular Filtration Rate Calc 87 >90 mL/min BUN/Creatinine Ratio 7.8 L 10.0-20.0 Serum Glucose 138 H 74-106 mg/dL Calcium Level 8.3 L 8.7-10.4 mg/dL PATIENT: KATHY ZAPATA ACCT: [id number] UNIT: [id number] : 1940 LOC: ER ROOM / BED: / AGE / SEX: 84 / F ADM STATUS: REG ER SERVICE 33 ORDERING PHYSICIAN: PHILLIP REZA MD PROCEDURE(s): CXRP - CHEST PORTABLE REASON: sob ORDER NUMBER(s): [id number], ACCESSION NUMBER(s): [id number] CHEST RADIOGRAPH Indication: sob Technique: 1 view Comparison: CXR1 on DOS: 05/02/22, CHEST XRAY 1 VIEW on DOS: 05/02/22 FINDINGS: Lines and Tubes: External leads. Lungs/Pleura: The right hand overlies the lower chest. Persistent dense mid to basilar interstitial opacities. No focal consolidation. No evident pleural abnormality. Cardio-mediastinum: Upper normal heart size. Aortic atherosclerosis. Other: No acute osseous abnormality. IMPRESSION: No acute cardiopulmonary abnormality within the exam limitation. Chronic dense bilateral interstitial opacities may represent edema or fibrosis given similar appearance to 2022. SEPSIS Sepsis Screen Date sepsis recognized/suspect: Dec 16, 2024 Time Sepsis recognized/suspect: 2144 Recent Procedure: No On Antibiotic Therapy: No Respiratory Rate >20: No Heart Rate >90: No Temp<36 C (96.8 F) or >38.3 C: No SBP <90 or MAP <65 mmHG: No New Acute Mental Status Change: No Is the patient on CPAP, BIPAP,: No Physician Orders Chest Portable (12/16/24 21:34) Urinalysis (12/16/24 21:34) Electrocardigram (12/17/24 00:57) * Cardiology Consult (12/16/24 23:58) Complete Blood Count (12/17/24 04:00) Comprehensive Metabolic Panel (12/17/24 04:00) B-Type Natriuretic Peptide (12/17/24 02:05) Carvedilol Tablet (Coreg Tablet) (12/17/24 10:00) Methylprednisolone Sod Succ (Solu Medrol (12/17/24 06:00) Famotidine Injection (Pepcid Injection) (12/17/24 10:00) Enoxaparin Sodium (Lovenox) (12/17/24 10:00) Potassium Chl [place] Kcl (12/17/24 02:15) Consistent Carb(Ccho)Diabetes (12/17/24 Breakfast) Glucose Blood (Accu-Chek Comfort Curve T (12/17/24 07:00) Mild Sliding Scale (12/17/24 07:00) Dextrose 50% Syringe (12/17/24 02:15) Admit (12/17/24 02:05) Allergies (12/17/24 02:05) Code Status (12/17/24 02:05) Sodium Chloride Lock (Saline Lock Ns) (12/17/24 06:00) Oxygen Per Hour (12/17/24 02:05) Hydrocodone-Acet 5/325mg Tab ([place] 5/32 (12/17/24 02:15) Ondansetron Hcl (Zofran) (12/17/24 02:15) Docusate Sodium Capsule (Colace Capsule) (12/17/24 02:15) Fall Risk Precautions In Place QSHIFT (12/17/24 02:05) Complete Blood Count (12/18/24 04:00) Comprehensive Metabolic Panel (12/18/24 04:00) Echo 2d Mode Cardiac Dop (12/17/24 02:05) Condition: Serious (12/17/24 02:05) Acetaminophen Tablet (Tylenol Tablet) (12/17/24 02:15) Vital Signs Date Time Temp Pulse Resp B/P (MAP) Pulse Ox O2 Delivery O2 Flow Rate FiO2 12/16/24 23:52 89 12/16/24 23:11 88 12/16/24 22:00 18 100 Nasal Cannula* 4 36 12/16/24 21:49 88 12/16/24 21:45 97.5 96 14 145/76 (99) 95 97.5 12/16/24 21:45 98.2 96 14 145/76 (99) 95 98.2 12/16/24 21:45 95 Nasal Cannula* 6 44 12/16/24 21:36 103 12/16/24 20:59 103 12/16/24 20:55 98.3 101 18 113/68 84 98.3 Laboratory Tests Test 12/16/24 21:52 White Blood Count 5.0 10^3/uL (4.4-10.8) Medications Medications Dose Ordered Sig/Jeff Route Start Time Stop Time Status Last Admin Dose Admin Albuterol 5 mg ONCE ONCE NEB 12/16/24 21:45 12/16/24 21:46 DC 12/16/24 22:10 5 MG Enoxaparin Sodium 60 mg ONCE ONCE SC 12/17/24 00:00 12/17/24 00:01 DC 12/17/24 00:07 60 MG Ipratropium [place] 0.5 mg ONCE ONCE NEB 12/16/24 21:45 12/16/24 21:46 DC 12/16/24 22:10 0.5 MG Methylprednisolone Sodium Succinate 125 mg ONCE ONCE IV 12/16/24 21:45 12/16/24 21:46 DC 12/16/24 21:57 125 MG Assessment/Plan Assessment/Plan Acute respiratory distress Hypokalemia Demand ischemia Heart failure, unspecified Acute exacerbation of congestive heart failure Plan 1. Admit to telemetry unit 2. Breathing treatment 3. Pain control management 4. Management of fluids and electrolytes 5. Consultation for Cardiology 6. Diagnostic tests chest x-ray 7. DVT prophylaxis-on Lovenox 8. Repeat labs CBC, CMP in a.m. 9. Continue with current medical management 10. Treatment plan discussed with patient and RN. Patient verbalized understanding. Plan discussed with: Patient, Other (RN) My Orders Orders - CONNIE WATSON DNP Procedure Category Date Status Time Complete Blood Count LAB 12/17/24 Verified 04:00 Comprehensive LAB 12/17/24 Verified Metabolic Panel 04:00 B-Type Natriuretic LAB 12/17/24 Verified Peptide 02:05 Carvedilol Tablet PHA 12/17/24 Verified (Coreg Tablet) 10:00 Methylprednisolone PHA 12/17/24 Verified Sod Succ (Solu Medrol 06:00 Famotidine Injection PHA 12/17/24 Verified (Pepcid Injection) 10:00 Enoxaparin Sodium PHA 12/17/24 Verified (Lovenox) 10:00 Potassium Chl Erlin PHA 12/17/24 Verified KCL 02:15 Consistent DIET 12/17/24 Verified Carb(Ccho)Diabetes Breakfast Glucose Blood PHA 12/17/24 Verified (Accu-Chek Comfort 07:00 Mild Sliding Scale PHA 12/17/24 Verified 07:00 Dextrose 50% Syringe PHA 12/17/24 Verified 02:15 Admit ADMIT 12/17/24 Verified 02:05 Allergies BASILIO 12/17/24 Verified 02:05 Code Status CODE 12/17/24 Verified 02:05 Sodium Chloride Lock PHA 12/17/24 Verified (Saline Lock Ns) 06:00 Oxygen Per Hour RT 12/17/24 Verified 02:05 Hydrocodone-Acet PHA 12/17/24 Verified 5/325mg Tab ([place] 02:15 Ondansetron Hcl PHA 12/17/24 Verified (Zofran) 02:15 Docusate Sodium PHA 12/17/24 Verified Capsule (Colace 02:15 Fall Risk Precautions BASILIO 12/17/[address] 02:05 Complete Blood Count LAB 12/18/24 Verified 04:00 Comprehensive LAB 12/18/24 Verified Metabolic Panel 04:00 Echo 2d Mode Cardiac US 12/17/24 Verified DOP 02:05 Condition: Serious BASILIO 12/17/24 Verified 02:05 Acetaminophen Tablet PHA 12/17/24 Verified (Tylenol Tablet) 02:15 Problem List: (1) Acute respiratory distress (2) Hypokalemia (3) Demand ischemia (4) Heart failure, unspecified (5) Acute exacerbation of congestive heart failure Date of Service: Dec 16, 2024 Billing Provider: CONNIE WATSON DNP Common Visit Codes: [id number] INP/OBS CARE (HIGH) CONNIE WATSON DNP Dec 17, 2024 02:19
[2024-12-17] MEDS: FUROSEMIDE 20 MG/2 ML VIAL IV ONE (03:05)
[2024-12-17 03:18] LABS: Hematocrit 36.5 % (36.0-46.0); Hemoglobin 12.2 g/dL (12.2-16.2); Mean Corpuscular Hemoglobin 29.3 pg (28.0-32.0); Mean Corpuscular Volume 87.9 fL (80.0-100.0); Nucleated Red Blood Cells % 0.2 %
[2024-12-17 03:39] LABS: Albumin 3.9 g/dL (3.2-4.8); Alkaline Phosphatase 77 U/L (46-116); Anion Gap 11 (5-15); BUN/Creatinine Ratio 10.0 (10.0-20.0); Calcium 8.7 mg/dL (8.7-10.4); Carbon Dioxide 24 mmol/L (20-31); Potassium 3.5 mmol/L (3.5-5.1); Sodium 142 mmol/L (136-145); Total Protein 6.7 g/dL (5.7-8.2)
[2024-12-17 03:40] LABS: Bilirubin, Total 1.1 mg/dL (0.2-1.0)
[2024-12-17 04:06] LABS: Alanine Aminotransferase < 9 U/L (7-40); Blood Urea Nitrogen 6 mg/dL (9-23); Chloride 107 mmol/L (98-107); Glucose 199 mg/dL (74-106)
[2024-12-17] MEDS: SODIUM CHLOR 0.9% PF (SALINE LOCK) 10ML VIAL/SYR IV SCH (05:46)
[2024-12-17] MEDS: methylPREDNISolone SOD SUCC 40 MG/ML VL IV SCH (06:09)
[2024-12-17] MEDS: ACCU-CHEK COMFORT CURVE STRIP VI SCH (06:54)
[2024-12-17] MEDS: InsuLIN REG 1unit/0.01ml Soln (100units/ml) SC SCH (07:00)
[2024-12-17 08:02] LABS: Urine Protein, UAD Negative (Negative)
[2024-12-17] MEDS: FUROSEMIDE 40 MG/4 ML VIAL IV SCH (10:00)
[2024-12-17] MEDS ORDERED: FAMOTIDINE (10MG/ML) 2ML VL IV SCH (10:00)
--- NOTE | 2024-12-17 10:02 | ECG ---
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
[2024-12-17] MEDS: CARVEDILOL 3.125 MG TAB PO SCH (10:49)
[2024-12-17] MEDS: LOSARTAN POTASSIUM 25 MG TAB PO SCH (10:50)
[2024-12-17] MEDS: ENOXAPARIN SOD 60 MG/0.6 ML SYRINGE SC SCH (10:50)
[2024-12-17] MEDS: FAMOTIDINE (10MG/ML) 2ML VL IV SCH (10:50)
[2024-12-17] MEDS: IPRATROPIUM BROM 0.5 MG/2.5ML INH SOL NEB PRN (13:20)
[2024-12-17] MEDS: ALBUTEROL SULF 2.5 MG/0.5ML(0.5%) NEB SOLN NEB PRN (13:20)
--- NOTE | 2024-12-17 14:11 | DVHPN2 ---
Progress Note Date Seen: Dec 17, 2024 Medical Necessity Reason Pt with a Central, PICC or Fol: No Subjective Patient reports: No new complaints Review of Systems: HEENT:Normal, CVS:Normal, RESPIRATORY:Normal, GI:Normal, :Normal, MSK:Normal, NEURO:Normal Objective vital signs Vital Sign Date Time Temp Pulse Resp B/P (MAP) Pulse Ox O2 Delivery O2 Flow Rate FiO2 12/17/24 13:57 78 24 146/91 (109) 94 12/17/24 10:14 Nasal Cannula* 2 28 12/17/24 08:00 97.6 97.6 Total Intake and Output 12/16/24 12/16/24 12/17/24 15:00 23:00 07:00 Intake Total 100 ml Balance 100 ml medications Current Medications Medications Dose Ordered Sig/Jeff Route Start Time Stop Time Status Last Admin Dose Admin Carvedilol 3.125 mg Q12HR PO 12/17/24 10:00 12/17/24 10:49 3.125 MG Famotidine 20 mg Q12HR IV 12/17/24 10:00 UNV Dextrose 50 ml UD PRN IV 12/17/24 02:15 Sodium Chloride 10 ml Q8HR IV 12/17/24 06:00 12/17/24 13:40 10 ML Acetaminophen/ Hydrocodone Bitart 1 tab Q4HP PRN PO 12/17/24 02:15 Ondansetron HCl 4 mg Q4HP PRN IV 12/17/24 02:15 Docusate Sodium 100 mg BIDPRN PRN PO 12/17/24 02:15 Acetaminophen 650 mg Q6HP PRN PO 12/17/24 02:15 Nitroglycerin 0.4 mg Q5MINP PRN SL 12/17/24 02:15 Morphine Sulfate 2 mg Q30M PRN IV 12/17/24 02:15 Losartan Potassium 25 mg DAILY PO 12/17/24 10:00 12/17/24 10:50 25 MG Albuterol 2.5 mg Q4HPRN PRN NEB 12/17/24 02:15 12/17/24 13:20 2.5 MG Furosemide 40 mg DAILY IV 12/17/24 10:00 12/17/24 13:40 40 MG Pantoprazole Sodium 40 mg DAILY@0600 PO 12/18/24 06:00 UNV Albuterol 2.5 mg Q4HWA NEB 12/17/24 18:00 UNV Ipratropium [place] 0.5 mg Q4HWA NEB 12/17/24 18:00 UNV Examination: GENERAL:Normal, HEENT:Normal, NECK:Normal, LUNGS:Normal, LUNGS:Abnormal (ON OXYGEN, BILATERAL RALES), CVS:Normal, ABDOMEN:Normal, MSK:Normal, SKIN:Normal, NEURO:Normal, :Normal laboratory and microbiology Laboratory Tests 12/17/24 02:57 Test 12/17/24 02:57 Range/Units Serum Glucose 199 H 74-106 mg/dL Problem List/Assessment/Plan Problem List/Assessment/Plan #1 acute resp failure: cont oxygen #2 acute on chronic systolic/diastolic heart failure: lasix iv #3 h/o aortic stenosis: check echo #4 htn #5 dementia #6 cad s/p pci #7 copd ? exacerbation #8 nstemi ?type 2 #9 tobacco abuse: advised to quit, refused nicotine patch- time spent 11 mins #10 encephalopathy ?metabolic Plan discussed with: Patient, Daughter My Orders My Orders Orders - ARTEMIO HARLEY MD Procedure Category Date Status Time Pantoprazole Tablet PHA 12/18/24 Transmitted (Protonix Tablet) 06:00 Albuterol Medneb PHA 12/17/24 Transmitted (Ventolin Medneb) 18:00 Ipratropium Medneb PHA 12/17/24 Transmitted (Atrovent Medneb) 18:00 Enoxaparin Sodium PHA 12/18/24 Transmitted (Lovenox) 10:00 Complete Blood Count LAB 12/18/24 Verified 06:00 Magnesium LAB 12/18/24 Verified 05:00 Critical Care Time (mins): 38 (critical care time excluding procedures is 38mins) Date of Service: Dec 17, 2024 Billing Provider: ARTEMIO HARLEY MD Common Visit Codes: [id number] CARE 30-74 MIN ARTEMIO HARLEY MD Dec 17, 2024 14:11
[2024-12-17] MEDS: IPRATROPIUM BROM 0.5 MG/2.5ML INH SOL NEB SCH (17:56)
[2024-12-17] MEDS: ALBUTEROL SULF 2.5 MG/0.5ML(0.5%) NEB SOLN NEB SCH (17:56)
[2024-12-17] MEDS: ATORVASTATIN 20 MG TAB PO SCH (22:04)
--- NOTE | 2024-12-17 23:03 | DVHPN2 ---
Progress Note - Dictate Date Seen: Dec 17, 2024 Medical Necessity Reason Pt with a Central, PICC or Fol: No Subjective Patient was seen and evaluated in follow up. Patient is on 2 LPM NC. BNP 1195.49. UA shows few bacteria. Telemetry reviewed. vital signs Vital Sign Date Time Temp Pulse Resp B/P (MAP) Pulse Ox O2 Delivery O2 Flow Rate FiO2 12/17/24 22:04 97 135/72 12/17/24 21:00 12 95 12/17/24 19:10 98.6 98.6 12/17/24 19:10 Nasal Cannula* 2 28 Total Intake and Output 12/16/24 12/16/24 12/17/24 15:00 23:00 07:00 Intake Total 100 ml Balance 100 ml medications Current Medications Medications Dose Ordered Sig/Jeff Route Start Time Stop Time Status Last Admin Dose Admin Carvedilol 3.125 mg Q12HR PO 12/17/24 10:00 12/17/24 22:04 3.125 MG Famotidine 20 mg Q12HR IV 12/17/24 10:00 UNV Dextrose 50 ml UD PRN IV 12/17/24 02:15 Sodium Chloride 10 ml Q8HR IV 12/17/24 06:00 12/17/24 22:04 10 ML Acetaminophen/ Hydrocodone Bitart 1 tab Q4HP PRN PO 12/17/24 02:15 Ondansetron HCl 4 mg Q4HP PRN IV 12/17/24 02:15 Docusate Sodium 100 mg BIDPRN PRN PO 12/17/24 02:15 Acetaminophen 650 mg Q6HP PRN PO 12/17/24 02:15 Nitroglycerin 0.4 mg Q5MINP PRN SL 12/17/24 02:15 Morphine Sulfate 2 mg Q30M PRN IV 12/17/24 02:15 Losartan Potassium 25 mg DAILY PO 12/17/24 10:00 12/17/24 10:50 25 MG Albuterol 2.5 mg Q4HPRN PRN NEB 12/17/24 02:15 12/17/24 13:20 2.5 MG Furosemide 40 mg DAILY IV 12/17/24 10:00 12/17/24 13:40 40 MG Pantoprazole Sodium 40 mg DAILY@0600 PO 12/18/24 06:00 Albuterol 2.5 mg Q4HWA [facility] 12/17/24 18:00 12/17/24 21:40 2.5 MG Ipratropium [place] 0.5 mg Q4HWA [facility] 12/17/24 18:00 12/17/24 21:40 0.5 MG Enoxaparin Sodium 40 mg DAILY SC 12/18/24 10:00 Aspirin 81 mg DAILY PO 12/18/24 10:00 Atorvastatin Calcium 40 mg HS PO 12/17/24 22:00 12/17/24 22:04 40 MG objective GENERAL: Alert and oriented x 3. No acute distress. EYES: PERRL, EOMI. Anicteric. HENT: Moist mucous membranes. LUNGS: Clear to auscultation bilaterally. CARDIOVASCULAR: Regular rate and rhythm. ABDOMEN: Soft, nontender and nondistended. EXTREMITIES: No edema. NEUROLOGIC: No focal neurological deficits. SKIN: Warm, dry. laboratory and microbiology Laboratory Tests 12/17/24 02:57 Test 12/17/24 02:57 Range/Units Serum Glucose 199 H 74-106 mg/dL Problem List Elevated troponin. Chest pain. Acute respiratory failure. Acute on chronic systolic/diastolic heart failure. HTN. CAD s/p PCI. Dementia. COPD. Tobacco abuse. Encephalopathy. Assessment/Plan Continued all current supportive medical care. Morphine and [place] for pain management. Aspirin, Lipitor. Coreg, Losartan. DVT and GI prophylactics. Diuretics with Lasix. Additional plan as per the hospital course. Plan discussed with: Patient RUTH BRODY MD Dec 17, 2024 23:03
[2024-12-18] VITALS (12 sets, daily range): BP systolic 112–135; BP diastolic 59–73; PULSE 56–100; RESP 16–18; TEMP 97.7–97.8; O2SAT 91–100
[2024-12-18] MEDS: PANTOPRAZOLE 40 MG TAB PO SCH (06:00)
[2024-12-18 07:14] LABS: Hematocrit 34.1 % (36.0-46.0); Hemoglobin 11.2 g/dL (12.2-16.2); Mean Corpuscular Hemoglobin 29.3 pg (28.0-32.0); Mean Corpuscular Volume 88.9 fL (80.0-100.0); Nucleated Red Blood Cells % 0.1 %
[2024-12-18 07:34] LABS: Albumin 4.0 g/dL (3.2-4.8); Alkaline Phosphatase 65 U/L (46-116); Anion Gap 10 (5-15); BUN/Creatinine Ratio 13.2 (10.0-20.0); Bilirubin, Total 1.1 mg/dL (0.2-1.0); Blood Urea Nitrogen 10 mg/dL (9-23); Calcium 9.0 mg/dL (8.7-10.4); Carbon Dioxide 25 mmol/L (20-31); Magnesium 2.0 mg/dL (1.6-2.6); Potassium 3.9 mmol/L (3.5-5.1); Sodium 144 mmol/L (136-145); Total Protein 6.6 g/dL (5.7-8.2)
[2024-12-18 07:41] LABS: Alanine Aminotransferase < 9 U/L (7-40); Chloride 109 mmol/L (98-107); Glucose 126 mg/dL (74-106)
--- NOTE | 2024-12-18 10:07 | DVHPN2 ---
Progress Note Date Seen: Dec 18, 2024 Medical Necessity Reason Pt with a Central, PICC or Fol: No Subjective Patient reports: No new complaints Review of Systems: HEENT:Normal, CVS:Normal, RESPIRATORY:Normal, GI:Normal, :Normal, MSK:Normal, NEURO:Normal Objective vital signs Vital Sign Date Time Temp Pulse Resp B/P (MAP) Pulse Ox O2 Delivery O2 Flow Rate FiO2 12/18/24 06:07 96 Room Air 12/18/24 06:07 0 21 12/18/24 05:00 97.8 57 16 135/73 (93) 97.8 Total Intake and Output 12/17/24 12/17/24 12/18/24 15:00 23:00 07:00 Intake Total 300 ml Balance 300 ml medications Current Medications Medications Dose Ordered Sig/Jeff Route Start Time Stop Time Status Last Admin Dose Admin Carvedilol 3.125 mg Q12HR PO 12/17/24 10:00 12/17/24 22:04 3.125 MG Famotidine 20 mg Q12HR IV 12/17/24 10:00 UNV Dextrose 50 ml UD PRN IV 12/17/24 02:15 Sodium Chloride 10 ml Q8HR IV 12/17/24 06:00 12/18/24 06:14 10 ML Acetaminophen/ Hydrocodone Bitart 1 tab Q4HP PRN PO 12/17/24 02:15 Ondansetron HCl 4 mg Q4HP PRN IV 12/17/24 02:15 Docusate Sodium 100 mg BIDPRN PRN PO 12/17/24 02:15 Acetaminophen 650 mg Q6HP PRN PO 12/17/24 02:15 Nitroglycerin 0.4 mg Q5MINP PRN SL 12/17/24 02:15 Morphine Sulfate 2 mg Q30M PRN IV 12/17/24 02:15 Losartan Potassium 25 mg DAILY PO 12/17/24 10:00 12/17/24 10:50 25 MG Furosemide 40 mg DAILY IV 12/17/24 10:00 12/17/24 13:40 40 MG Pantoprazole Sodium 40 mg DAILY@0600 PO 12/18/24 06:00 Albuterol 2.5 mg Q4HWA NEB 12/17/24 18:00 12/17/24 21:40 2.5 MG Ipratropium [place] 0.5 mg Q4HWA NEB 12/17/24 18:00 12/17/24 21:40 0.5 MG Enoxaparin Sodium 40 mg DAILY SC 12/18/24 10:00 Aspirin 81 mg DAILY PO 12/18/24 10:00 Atorvastatin Calcium 40 mg HS PO 12/17/24 22:00 12/17/24 22:04 40 MG Examination: GENERAL:Normal, HEENT:Normal, NECK:Normal, LUNGS:Normal, LUNGS:Abnormal (on oxygen, rales), CVS:Normal, ABDOMEN:Normal, MSK:Normal, SKIN:Normal, NEURO:Normal, :Normal laboratory and microbiology Laboratory Tests 12/18/24 06:50 Test 12/18/24 06:50 Range/Units Serum Glucose 126 H 74-106 mg/dL Problem List/Assessment/Plan Problem List/Assessment/Plan #1 acute resp failure: cont oxygen #2 acute on chronic systolic/diastolic heart failure: lasix iv #3 h/o aortic stenosis: check echo #4 htn #5 dementia #6 cad s/p pci #7 copd ? exacerbation #8 nstemi ?type 2 #9 tobacco abuse: advised to quit, refused nicotine patch- time spent 11 mins #10 encephalopathy ?metabolic unstable for transfer advance care planning- full code- time spent 19 mins Plan discussed with: Patient My Orders My Orders Orders - ARTEMIO HARLEY MD Procedure Category Date Status Time Pantoprazole Tablet PHA 12/18/24 In Process (Protonix Tablet) 06:00 Albuterol Medneb PHA 12/17/24 In Process (Ventolin Medneb) 18:00 Ipratropium Medneb PHA 12/17/24 In Process (Atrovent Medneb) 18:00 Enoxaparin Sodium PHA 12/18/24 In Process (Lovenox) 10:00 Aspirin Tablet PHA 12/18/24 In Process 10:00 Atorvastatin (Lipitor) PHA 12/17/24 In Process 22:00 Date of Service: Dec 18, 2024 Billing Provider: ARTEMIO HARLEY MD Common Visit Codes: [id number] INP/OBS CARE(HIGH) Secondary Visit Codes: [id number] CARE PLAN 30 MINUTES ATREMIO HARLEY MD Dec 18, 2024 10:07
[2024-12-18] MEDS: ENOXAPARIN SOD 40 MG/0.4 ML SYRINGE SC SCH (11:04)
--- NOTE | 2024-12-18 23:45 | DVHPN2 ---
Progress Note - Dictate Date Seen: Dec 18, 2024 Medical Necessity Reason Pt with a Central, PICC or Fol: No Subjective Patient was seen and evaluated in follow up. No overnight events. Patient is on 2 LPM NC. HGB A1c 6.. TSH is WNL at 1.59. Vit B12 438. Telemetry reviewed. vital signs Vital Sign Date Time Temp Pulse Resp B/P (MAP) Pulse Ox O2 Delivery O2 Flow Rate FiO2 12/18/24 22:28 90 131/60 12/18/24 22:05 16 100 12/18/24 21:00 97.8 97.8 12/18/24 10:00 Nasal Cannula 2.0 12/18/24 10:00 28 Total Intake and Output 12/17/24 12/17/24 12/18/24 15:00 23:00 07:00 Intake Total 300 ml Balance 300 ml medications Current Medications Medications Dose Ordered Sig/Jeff Route Start Time Stop Time Status Last Admin Dose Admin Carvedilol 3.125 mg Q12HR PO 12/17/24 10:00 12/18/24 21:28 3.125 MG Famotidine 20 mg Q12HR IV 12/17/24 10:00 UNV Dextrose 50 ml UD PRN IV 12/17/24 02:15 Sodium Chloride 10 ml Q8HR IV 12/17/24 06:00 12/18/24 22:45 10 ML Acetaminophen/ Hydrocodone Bitart 1 tab Q4HP PRN PO 12/17/24 02:15 Ondansetron HCl 4 mg Q4HP PRN IV 12/17/24 02:15 Docusate Sodium 100 mg BIDPRN PRN PO 12/17/24 02:15 Acetaminophen 650 mg Q6HP PRN PO 12/17/24 02:15 Nitroglycerin 0.4 mg Q5MINP PRN SL 12/17/24 02:15 Morphine Sulfate 2 mg Q30M PRN IV 12/17/24 02:15 Losartan Potassium 25 mg DAILY PO 12/17/24 10:00 12/18/24 11:03 25 MG Furosemide 40 mg DAILY IV 12/17/24 10:00 12/18/24 11:00 40 MG Pantoprazole Sodium 40 mg DAILY@0600 PO 12/18/24 06:00 Albuterol 2.5 mg Q4HWA NEB 12/17/24 18:00 12/18/24 21:54 2.5 MG Ipratropium [place] 0.5 mg Q4HWA NEB 12/17/24 18:00 12/18/24 21:54 0.5 MG Enoxaparin Sodium 40 mg DAILY SC 12/18/24 10:00 12/18/24 11:04 40 MG Aspirin 81 mg DAILY PO 12/18/24 10:00 12/18/24 11:00 81 MG Atorvastatin Calcium 40 mg HS PO 12/17/24 22:00 12/18/24 21:26 40 MG objective GENERAL: Alert and oriented x 3. No acute distress. EYES: PERRL, EOMI. Anicteric. HENT: Moist mucous membranes. LUNGS: Clear to auscultation bilaterally. CARDIOVASCULAR: Regular rate and rhythm. ABDOMEN: Soft, nontender and nondistended. EXTREMITIES: No edema. NEUROLOGIC: No focal neurological deficits. SKIN: Warm, dry. laboratory and microbiology Laboratory Tests 12/18/24 06:50 Test 12/18/24 06:50 Range/Units Serum Glucose 126 H 74-106 mg/dL Problem List Elevated troponin. Chest pain. Acute respiratory failure. Acute on chronic systolic/diastolic heart failure. HTN. CAD s/p PCI. Dementia. COPD. Tobacco abuse. Encephalopathy. Assessment/Plan Continued all current supportive medical care. Morphine and [place] for pain management. Aspirin, Lipitor. Coreg, Losartan. DVT and GI prophylactics. Diuretics with Lasix. Additional plan as per the hospital course. A total of 25 minutes was spent reviewing the patient record, examining the patient, making a diagnostic and therapeutic plan, discussing this plan with medical personnel, following up on diagnostic studies and following the patient for clinical stability excluding any and all procedures. At least 50% of this time was spent in direct, bxys-so-drhi contact. Plan discussed with: Patient RUTH BRODY MD Dec 18, 2024 23:45
[2024-12-19] VITALS (13 sets, daily range): BP systolic 94–158; BP diastolic 55–86; PULSE 63–90; RESP 16–20; TEMP 97.4–98.3; O2SAT 90–100
--- NOTE | 2024-12-19 05:18 | DVH ---
CHEST RADIOGRAPH Indication: chf Technique: Single frontal view of the chest was obtained COMPARISON: XY CHEST PORTABLE on DOS: 12/16/24, CT ANGIO CHEST CONTRAST on DOS: 05/02/22, CXR1 on DOS: 05/02/22, CHEST XRAY 1 VIEW on DOS: 05/02/22 FINDINGS: Lines and Tubes: None Lungs: Increased interstitial prominence. This may represent pulmonary vascular congestion and/or vir al pneumonia. Pleura: No effusion.No pneumothorax. Cardiomediastinal contours: Unchanged cardiomegaly. Bones: Unremarkable IMPRESSION: Unchanged pulmonary vascular congestion
[2024-12-19 07:17] LABS: Anion Gap 9 (5-15); Carbon Dioxide 28 mmol/L (20-31); Chloride 106 mmol/L (98-107); Potassium 3.5 mmol/L (3.5-5.1); Sodium 143 mmol/L (136-145)
[2024-12-19 07:19] LABS: Calcium 8.9 mg/dL (8.7-10.4)
[2024-12-19 07:23] LABS: BUN/Creatinine Ratio 19.7 (10.0-20.0); Blood Urea Nitrogen 14 mg/dL (9-23)
[2024-12-19 07:24] LABS: Magnesium 1.8 mg/dL (1.6-2.6)
[2024-12-19 07:27] LABS: Glucose 133 mg/dL (74-106)
--- NOTE | 2024-12-19 09:02 | DVHSR ---
APPROVED REPORT EXAM: Two-dimensional and M-mode echocardiogram with Doppler and color Doppler. Blood Pressure: 132/65 mmHg INDICATION CHF, unspecified RISK FACTORS Height: 62, Weight: 123 DIMENSIONS LVDd5.4 (3.8-5.7cm)LA (2D)4.2 (1.9-4.0cm)Aortic Root3.1 (2.0-3.7cm) LVDs4.4 (2.5-4.0cm)LA (MM) (1.9-4.0cm)Aortic Cusp Exc0.9 (1.5-2.0cm) EF (%) 40.0 (55-70%)Rt. Atrium3.2 (1.9-4.0cm)Asc. Aorta cm Mitral Valve MitralMitral Stenosis E wave1.21m/sMV Mean GR.3mmHg A wave1.09m/sMV Peak GR.130mmHg E/A ratio1.12D MVAcm2 DECEL [id number] 1/2 Ahbt73ml IVRTmsDop MVA3.89cm2 Aortic Valve Aortic ValveAortic Stenosis V10.78m/Ludin Mean GR.15mmHg V22.46m/Ludin Peak GR.24mmHg LVOT Diameter1.9 (1.8-2.4cm)Doppler AVA0.90cm2 Pulmonic Valve V20.80m/s Tricuspid Valve TR Velocity2.82m/s [id number] Conclusion VERY LIMITED IMAGES LV EF IS 55% AND NORMAL MILD LVH AND MILD LV DIASTOLIC DYSFUNCTION MODERATELY DILATED LA CRITICAL AORTIC STENOSIS AORTIC VALVE AREA 0.9 CM SQUARE NO EFFUSION
--- NOTE | 2024-12-19 10:15 | DVHDS2 ---
Discharge Summary Date of Admission Dec 17, 2024 at 02:05 Date of Discharge: Dec 19, 2024 Labs/Diagnostic Data: Laboratory Results Test 12/19/24 06:05 12/18/24 06:50 12/17/24 11:45 12/17/24 07:00 Sodium Level 143 mmol/L (136-145) Potassium Level 3.5 mmol/L (3.5-5.1) Chloride Level 106 mmol/L (98-107) Carbon Dioxide Level 28 mmol/L (20-31) Anion Gap 9 (5-15) Blood Urea Nitrogen 14 mg/dL (9-23) Creatinine 0.71 mg/dL (0.550-1.02) Glomerular Filtration Rate Calc 84 mL/min (>90) BUN/Creatinine Ratio 19.7 (10.0-20.0) Serum Glucose 133 mg/dL (74-106) Calcium Level 8.9 mg/dL (8.7-10.4) Magnesium Level 1.8 mg/dL (1.6-2.6) White Blood Count 6.6 10^3/uL (4.4-10.8) Red Blood Count 3.84 10^6/uL (4.0-5.20) Hemoglobin 11.2 g/dL (12.2-16.2) Hematocrit 34.1 % (36.0-46.0) Mean Corpuscular Volume 88.9 fL (80.0-100.0) Mean Corpuscular Hemoglobin 29.3 pg (28.0-32.0) Mean Corpuscular Hemoglobin Concent 32.9 g/dL (32.0-36.0) Red Cell Distribution Width 17.2 % (11.8-14.3) Platelet Count 159 10^3/uL (140-450) Mean Platelet Volume 8.9 fL (6.9-10.8) Neutrophils (%) (Auto) 63.0 % (37.0-80.0) Lymphocytes (%) (Auto) 28.0 % (10.0-50.0) Monocytes (%) (Auto) 8.7 % (0.0-12.0) Eosinophils (%) (Auto) 0.0 % (0.0-7.0) Basophils (%) (Auto) 0.3 % (0.0-2.0) Neutrophils # (Auto) 4.1 10 ^3/uL (1.6-8.6) Lymphocytes # (Auto) 1.8 10 ^3/uL (0.4-5.4) Monocytes # (Auto) 0.6 10 ^3/uL (0-1.3) Eosinophils # (Auto) 0 10 ^3/uL (0-0.8) Basophils # (Auto) 0 10 ^3/uL (0-0.2) Nucleated Red Blood Cells 0.1 % Hemoglobin A1c 6.3 % A1C (<5.7) Total Bilirubin 1.1 mg/dL (0.2-1.0) Aspartate Amino Transferase (AST) 20 U/L (13-40) Alanine Aminotransferase (ALT) < 9 U/L (7-40) Alkaline Phosphatase 65 U/L (46-116) Total Protein 6.6 g/dL (5.7-8.2) Albumin 4.0 g/dL (3.2-4.8) Vitamin B12 Level 438 pg/mL (211-911) Thyroid Stimulating Hormone (TSH) 1.59 uIU/mL (0.55-4.78) POC Glucose 205 mg/dl (70-106) Urine Color Light-yellow (Yellow) Urine Clarity Clear (Clear) Urine pH 6.0 (5.0-9.0) Urine Specific [place] 1.012 (1.001-1.035) Urine Protein Negative (Negative) Urine Ketones Trace (Negative) Urine Blood Negative /uL (Negative) Urine Nitrite Negative (Negative) Urine Bilirubin Negative (Negative) Urine Urobilinogen Normal mg/dL (Negative) Urine Leukocyte Esterase Negative /uL (Negative) Urine RBC 1 /hpf (0 - 4) Urine Microscopic WBC 2 /HPF (0-5) Urine Squamous Epithelial Cells Few /hpf (<5) Urine Bacteria Few /hpf (None Seen) Urine Glucose Normal mg/dL (Normal) Test 12/17/24 02:57 12/17/24 00:30 B-Type Natriuretic Peptide 1195.49 pg/mL (0-100) Troponin I High Sensitivity 88 ng/L (</=34) Other Laboratory Tests 12/19/24 06:05 12/18/24 06:50 Brief Hx & Hospital Course: SEE DICTATED NOTE Condition at Discharge: Fair Final Diagnosis/Problems List CHF Discharge Disposition: Acute Care Facility Discharge Instruct/Medications Diet: Cardiac 2g Na,low cholest Activity: No Restrictions, As Tolerated Follow Up/Referral: FU WITH [facility] Medications: PER MAR Scheduled Aspirin (Aspir-Low), 81 MG PO DAILY, (Reported) Carvedilol Phosphate (Coreg Cr), 1 CAP PO DAILY, (Reported) Carvedilol Phosphate (Coreg Cr), 20 MG PO DAILY, (Reported) Losartan Potassium (Losartan Potassium), 0.5 TAB PO DAILY, (Reported) Meloxicam (Meloxicam), 15 MG PO DAILY, (Reported) Nitroglycerin (Ntrostat Sublingual), 0.4 MG SL PRN, (Reported) Rosuvastatin Calcium (Rosuvastatin Calcium), 1 TAB PO DAILY, (Reported) Rosuvastatin Calcium (Crestor), 1 TAB PO DAILY, (Reported) Scheduled PRN Albuterol Sulfate (Ventolin Mdi), 90 MCG IN Q6HP PRN for Difficulty to breath, (Reported) Miscellaneous Medications Furosemide (Furosemide), 40 MG PO, (Reported) Potassium Chloride (Potassium Chloride Cr), 10 MEQ PO, (Reported) Discharge Statement: "Patient was advised to return to the ER or call 911 if any headaches, dizziness, shortness of breath, chest pain, abdominal pain, bleeding, fevers, or worsening of medical condition. Patient was counseled about treatment plan, medications, possible side effects, patientverbalized understanding. All questions were answered to the best of my ability. This discharge took greater then 30 minutes in planning, reviewing documentation, counseling the patient, and discussing with other team members." ASSESSMENT ASSESSMENT Assessment CHF Date of Service: Dec 19, 2024 Billing Provider: ARTEMIO HARLEY MD Common Visit Codes: [id number] DISCH DAY >30min ARTEMIO HARLEY MD Dec 19, 2024 10:14
--- NOTE | 2024-12-19 10:29 | DVHDS ---
DATE OF DISCHARGE: 12/19/2024 TRANSFER SUMMARY HISTORY OF PRESENT ILLNESS: The patient is an 84-year-old lady who is admitted with history of increasing shortness of breath and chest discomfort. The patient has history of congestive heart failure, coronary artery disease, diabetes, and aortic stenosis. HOSPITAL COURSE: The patient had evidence of congestive heart failure. The patient had echocardiogram done that showed evidence of critical aortic stenosis with a left ventricular ejection fraction of 55%. The patient will now be transferred to [place] for further management. The patient's troponin levels were mildly elevated up to 88 and BNP was elevated to 1200. FINAL DIAGNOSES: Therefore, * Acute respiratory failure. * [id number] systolic/diastolic heart failure. * Critical aortic stenosis. * Hypertension. * Dementia. * Coronary artery disease, status post PCI. * COPD. * Non-STEMI, likely type 2. * Tobacco abuse. * Encephalopathy, questionable metabolic, that has improved. Time spent in discharge planning and review of plan with the patient and nursing was 39 minutes. MD CADY Lakhani/TAWNYA TID: [id number] RECEIPT: [id number]
[2024-12-19] MEDS: MAGNESIUM SULFATE 1GM/100ML 100 ML IV SCH (11:39)
--- NOTE | 2024-12-19 23:12 | DVHPN2 ---
Progress Note - Dictate Date Seen: Dec 19, 2024 Medical Necessity Reason Pt with a Central, PICC or Fol: No Subjective Patient was seen and evaluated in follow up. Patient denies any current complaints. Patient is on 2 LPM NC. BS are WNL. Chest x-ray shows unchanged pulmonary vascular congestion. Patient is pending transfer to [place]. Telemetry reviewed. vital signs Vital Sign Date Time Temp Pulse Resp B/P (MAP) Pulse Ox O2 Delivery O2 Flow Rate FiO2 12/19/24 12:08 78 158/86 12/19/24 10:00 96 Nasal Cannula 2.0 12/19/24 10:00 28 12/19/24 09:00 98.3 19 98.3 Total Intake and Output 12/18/24 12/18/24 12/19/24 15:00 23:00 07:00 Intake Total 300 ml 300 ml Balance 300 ml 300 ml medications Current Medications Medications Dose Ordered Sig/Jeff Route Start Time Stop Time Status Last Admin Dose Admin Carvedilol 3.125 mg Q12HR PO 12/17/24 10:00 12/19/24 11:08 3.125 MG Famotidine 20 mg Q12HR IV 12/17/24 10:00 UNV Dextrose 50 ml UD PRN IV 12/17/24 02:15 Sodium Chloride 10 ml Q8HR IV 12/17/24 06:00 12/19/24 06:31 10 ML Acetaminophen/ Hydrocodone Bitart 1 tab Q4HP PRN PO 12/17/24 02:15 Ondansetron HCl 4 mg Q4HP PRN IV 12/17/24 02:15 Docusate Sodium 100 mg BIDPRN PRN PO 12/17/24 02:15 Acetaminophen 650 mg Q6HP PRN PO 12/17/24 02:15 Nitroglycerin 0.4 mg Q5MINP PRN SL 12/17/24 02:15 Morphine Sulfate 2 mg Q30M PRN IV 12/17/24 02:15 Losartan Potassium 25 mg DAILY PO 12/17/24 10:00 12/19/24 11:09 25 MG Furosemide 40 mg DAILY IV 12/17/24 10:00 12/19/24 11:07 40 MG Pantoprazole Sodium 40 mg DAILY@0600 PO 12/18/24 06:00 12/19/24 05:43 40 MG Albuterol 2.5 mg Q4HWA [facility] 12/17/24 18:00 12/19/24 06:42 2.5 MG Ipratropium [place] 0.5 mg Q4HWA [facility] 12/17/24 18:00 12/19/24 06:42 0.5 MG Enoxaparin Sodium 40 mg DAILY SC 12/18/24 10:00 12/19/24 11:09 40 MG Aspirin 81 mg DAILY PO 12/18/24 10:00 12/19/24 11:08 81 MG Atorvastatin Calcium 40 mg HS PO 12/17/24 22:00 12/18/24 21:26 40 MG objective GENERAL: Alert and oriented x 3. No acute distress. EYES: PERRL, EOMI. Anicteric. HENT: Moist mucous membranes. LUNGS: Clear to auscultation bilaterally. CARDIOVASCULAR: Regular rate and rhythm. ABDOMEN: Soft, nontender and nondistended. EXTREMITIES: No edema. NEUROLOGIC: No focal neurological deficits. SKIN: Warm, dry. laboratory and microbiology Laboratory Tests 12/19/24 06:05 12/18/24 06:50 Test 12/19/24 06:05 Range/Units Serum Glucose 133 H 74-106 mg/dL Problem List Elevated troponin. Chest pain. Acute respiratory failure. Acute on chronic systolic/diastolic heart failure. HTN. CAD s/p PCI. Dementia. COPD. Tobacco abuse. Encephalopathy. Assessment/Plan Continued all current supportive medical care. Aspirin. Coreg, Losartan. Diuretics with Lasix. DVT and GI prophylactics. Morphine and [place] for pain management. Additional plan as per the hospital course. A total of 25 minutes was spent reviewing the patient record, examining the patient, making a diagnostic and therapeutic plan, discussing this plan with medical personnel, following up on diagnostic studies and following the patient for clinical stability excluding any and all procedures. At least 50% of this time was spent in direct, [id number] contact. Plan discussed with: Patient RUTH BRODY MD Dec 19, 2024 13:46
[2024-12-20] VITALS (17 sets, daily range): BP systolic 102–126; BP diastolic 53–67; PULSE 49–98; RESP 14–20; TEMP 97–97.9; O2SAT 57–100
--- NOTE | 2024-12-20 08:58 | DVHPN2 ---
Progress Note Date Seen: Dec 20, 2024 Medical Necessity Reason Pt with a Central, PICC or Fol: No Subjective Patient reports: No new complaints Review of Systems: HEENT:Normal, CVS:Normal, RESPIRATORY:Normal, GI:Normal, :Normal, MSK:Normal, NEURO:Normal Objective vital signs Vital Sign Date Time Temp Pulse Resp B/P (MAP) Pulse Ox O2 Delivery O2 Flow Rate FiO2 12/20/24 07:22 54 16 100 12/20/24 07:16 Nasal Cannula 2.0 12/20/24 07:16 28 12/20/24 05:00 97.7 117/54 (75) 97.7 Total Intake and Output 12/19/24 12/19/24 12/20/24 15:00 23:00 07:00 Intake Total 100 ml 400 ml 680 ml Balance 100 ml 400 ml 680 ml medications Current Medications Medications Dose Ordered Sig/Jeff Route Start Time Stop Time Status Last Admin Dose Admin Carvedilol 3.125 mg Q12HR PO 12/17/24 10:00 12/19/24 22:50 3.125 MG Famotidine 20 mg Q12HR IV 12/17/24 10:00 UNV Dextrose 50 ml UD PRN IV 12/17/24 02:15 Sodium Chloride 10 ml Q8HR IV 12/17/24 06:00 12/20/24 06:49 10 ML Acetaminophen/ Hydrocodone Bitart 1 tab Q4HP PRN PO 12/17/24 02:15 Ondansetron HCl 4 mg Q4HP PRN IV 12/17/24 02:15 Docusate Sodium 100 mg BIDPRN PRN PO 12/17/24 02:15 Acetaminophen 650 mg Q6HP PRN PO 12/17/24 02:15 Nitroglycerin 0.4 mg Q5MINP PRN SL 12/17/24 02:15 Morphine Sulfate 2 mg Q30M PRN IV 12/17/24 02:15 Losartan Potassium 25 mg DAILY PO 12/17/24 10:00 12/19/24 11:09 25 MG Furosemide 40 mg DAILY IV 12/17/24 10:00 12/19/24 11:07 40 MG Pantoprazole Sodium 40 mg DAILY@0600 PO 12/18/24 06:00 12/19/24 05:43 40 MG Albuterol 2.5 mg Q4HWA [facility] 12/17/24 18:00 12/20/24 07:16 2.5 MG Ipratropium [place] 0.5 mg Q4HWA [facility] 12/17/24 18:00 12/20/24 07:16 0.5 MG Enoxaparin Sodium 40 mg DAILY SC 12/18/24 10:00 12/19/24 11:09 40 MG Aspirin 81 mg DAILY PO 12/18/24 10:00 12/19/24 11:08 81 MG Atorvastatin Calcium 40 mg HS PO 12/17/24 22:00 12/19/24 22:50 40 MG Examination: GENERAL:Normal, HEENT:Normal, NECK:Normal, LUNGS:Normal, LUNGS:Abnormal (ON OXYGEN), CVS:Normal, ABDOMEN:Normal, MSK:Normal, SKIN:Normal, NEURO:Normal, :Normal laboratory and microbiology Laboratory Tests 12/19/24 06:05 12/18/24 06:50 Test 12/19/24 06:05 Range/Units Serum Glucose 133 H 74-106 mg/dL Problem List/Assessment/Plan Problem List/Assessment/Plan #1 acute resp failure: cont oxygen #2 acute on chronic systolic/diastolic heart failure: lasix iv #3 h/o aortic stenosis: check echo #4 htn #5 dementia #6 cad s/p pci #7 copd ? exacerbation #8 nstemi ?type 2 #9 tobacco abuse: advised to quit, refused nicotine patch- time spent 11 mins #10 encephalopathy ?metabolic transfer to [place]/higher level of care for critical aortic stenosis advance care planning- full code- time spent 19 mins Plan discussed with: Patient My Orders My Orders Orders - ARTEMIO HARLEY MD Procedure Category Date Status Time Discharge DISCHARGE 12/19/24 Transmitted 10:12 * Toolroom Attendant CONS 12/19/24 Transmitted Consult Date of Service: Dec 20, 2024 Billing Provider: ARTEMIO HARLEY MD Common Visit Codes: [id number] INP/OBS CARE(HIGH) ARTEMIO HARLEY MD Dec 20, 2024 08:58
[2024-12-20 11:36] LABS: Chloride 103 mmol/L (98-107); Sodium 143 mmol/L (136-145)
[2024-12-20 11:37] LABS: Anion Gap 10 (5-15); Calcium 9.1 mg/dL (8.7-10.4); Carbon Dioxide 30 mmol/L (20-31)
[2024-12-20 11:42] LABS: BUN/Creatinine Ratio 14.9 (10.0-20.0); Blood Urea Nitrogen 11 mg/dL (9-23); Magnesium 2.2 mg/dL (1.6-2.6)
[2024-12-20 11:43] LABS: Glucose 147 mg/dL (74-106); Potassium 3.0 mmol/L (3.5-5.1)
--- NOTE | 2024-12-20 23:44 | DVHPN2 ---
Progress Note - Dictate Date Seen: Dec 20, 2024 Medical Necessity Reason Pt with a Central, PICC or Fol: No Subjective Patient was seen and evaluated in follow up. Patient denies any current complaints at this time. Patient is on 2 LPM NC. K 3. CM is arranging transfer to [place]. Telemetry reviewed. vital signs Vital Sign Date Time Temp Pulse Resp B/P (MAP) Pulse Ox O2 Delivery O2 Flow Rate FiO2 12/20/24 14:18 56 14 100 12/20/24 14:12 Nasal Cannula 2.0 12/20/24 14:12 28 12/20/24 10:18 102/58 12/20/24 09:00 97.0 97.0 Total Intake and Output 12/19/24 12/19/24 12/20/24 15:00 23:00 07:00 Intake Total 100 ml 400 ml 680 ml Balance 100 ml 400 ml 680 ml medications Current Medications Medications Dose Ordered Sig/Jeff Route Start Time Stop Time Status Last Admin Dose Admin Carvedilol 3.125 mg Q12HR PO 12/17/24 10:00 12/20/24 10:17 3.125 MG Famotidine 20 mg Q12HR IV 12/17/24 10:00 UNV Dextrose 50 ml UD PRN IV 12/17/24 02:15 Sodium Chloride 10 ml Q8HR IV 12/17/24 06:00 12/20/24 06:49 10 ML Acetaminophen/ Hydrocodone Bitart 1 tab Q4HP PRN PO 12/17/24 02:15 Ondansetron HCl 4 mg Q4HP PRN IV 12/17/24 02:15 Docusate Sodium 100 mg BIDPRN PRN PO 12/17/24 02:15 Acetaminophen 650 mg Q6HP PRN PO 12/17/24 02:15 Nitroglycerin 0.4 mg Q5MINP PRN SL 12/17/24 02:15 Morphine Sulfate 2 mg Q30M PRN IV 12/17/24 02:15 Losartan Potassium 25 mg DAILY PO 12/17/24 10:00 12/20/24 10:18 25 MG Furosemide 40 mg DAILY IV 12/17/24 10:00 12/20/24 10:17 40 MG Pantoprazole Sodium 40 mg DAILY@0600 PO 12/18/24 06:00 12/19/24 05:43 40 MG Albuterol 2.5 mg Q4HWA [facility] 12/17/24 18:00 12/20/24 14:12 2.5 MG Ipratropium [place] 0.5 mg Q4HWA [facility] 12/17/24 18:00 12/20/24 14:12 0.5 MG Enoxaparin Sodium 40 mg DAILY SC 12/18/24 10:00 12/19/24 11:09 40 MG Aspirin 81 mg DAILY PO 12/18/24 10:00 12/20/24 10:17 81 MG Atorvastatin Calcium 40 mg HS PO 12/17/24 22:00 12/19/24 22:50 40 MG objective GENERAL: Alert and oriented x 3. No acute distress. EYES: PERRL, EOMI. Anicteric. HENT: Moist mucous membranes. LUNGS: Clear to auscultation bilaterally. CARDIOVASCULAR: Regular rate and rhythm. ABDOMEN: Soft, nontender and nondistended. EXTREMITIES: No edema. NEUROLOGIC: No focal neurological deficits. SKIN: Warm, dry. laboratory and microbiology Laboratory Tests 12/20/24 10:41 12/18/24 06:50 Test 12/20/24 10:41 Range/Units Serum Glucose 147 H 74-106 mg/dL Problem List Elevated troponin. Chest pain. Acute respiratory failure. Acute on chronic systolic/diastolic heart failure. HTN. CAD s/p PCI. Dementia. COPD. Tobacco abuse. Encephalopathy. Assessment/Plan Continued all current supportive medical care. Aspirin. Coreg, Losartan. Diuretics with Lasix. Morphine and [place] for pain management. Additional plan as per the hospital course. A total of 25 minutes was spent reviewing the patient record, examining the patient, making a diagnostic and therapeutic plan, discussing this plan with medical personnel, following up on diagnostic studies and following the patient for clinical stability excluding any and all procedures. At least 50% of this time was spent in direct, [id number] contact. Plan discussed with: Patient RUTH BRODY MD Dec 20, 2024 14:52
[2024-12-21] VITALS (13 sets, daily range): BP systolic 92–130; BP diastolic 52–69; PULSE 53–87; RESP 15–18; TEMP 97.2–98.5; O2SAT 92–100
--- NOTE | 2024-12-21 12:58 | DVHPN2 ---
Subjective Patient denies any symptoms at this time Reviewed: Care Plan, H&P, Labs, Medications Changes from previous H/P or p: No Changes General: Per HPI Eyes: No Pain, No Vision change, No Conjunctivae inflammation, No Eyelid inflammation, No Other, No Redness ENT: No Ear pain, No Ear discharge, No Nose pain, No Nose discharge, No Nose congestion, No Mouth pain, No Mouth swelling, No Throat pain, No Throat swelling, No Other Cardiovascular: Chest Pain; No Palpitations, No Orthopnea, No Paroxysmal Noc. Dyspnea, No Edema, No Lt Headedness, No Other Respiratory: No Cough, No Dry, No Shortness of breath, No SOB with excertion, No Wheezing, No Hemoptysis, No Pleuritic Pain, No Sputum, No Other Gastrointestinal: No Nausea, No Vomiting; Abdominal Pain; No Diarrhea, No Constipation, No Melena, No Hematochezia, No Other Genitourinary: No Dysuria, No Frequency, No Incontinence, No Hematuria, No Retention, No Other Musculoskeletal: No other, No neck pain, No shoulder pain, No arm pain, No back pain, No hand pain, No leg pain, No foot pain Skin: No Rash, No Lesions, No Jaundice, No Bruising, No Other Objective Vitals Vital Signs Date Time Temp Pulse Resp B/P (MAP) Pulse Ox O2 Delivery O2 Flow Rate FiO2 12/21/24 10:13 130/69 12/21/24 10:13 54 12/21/24 09:00 98.0 15 99 98.0 12/21/24 08:05 Nasal Cannula* 2 28 Intake/Output Intake and Output 12/21/24 07:00 Intake Total 800 ml Balance 800 ml Intake Oral 800 ml # Voids 5 # Bowel Movements 2 General Appearance: Alert, Oriented X3, Cooperative HEENT: Atraumatic, PERRLA Lungs: Clear to auscultation, Normal air movement Cardiovascular: Normal S1, Normal S2 Abdomen: Normal bowel sounds, Soft, No tenderness, No hepatospenomegaly Musculoskeletal: Normal sensory function, Normal motor function Skin: Dry, Intact Psych/Mental Status: Mental status NL, Mood NL Medications Current Medications Medications Dose Ordered Sig/Jeff Route Start Time Stop Time Status Last Admin Dose Admin Carvedilol 3.125 mg Q12HR PO 12/17/24 10:00 12/21/24 10:13 3.125 MG Famotidine 20 mg Q12HR IV 12/17/24 10:00 UNV Dextrose 50 ml UD PRN IV 12/17/24 02:15 Sodium Chloride 10 ml Q8HR IV 12/17/24 06:00 12/21/24 06:12 10 ML Acetaminophen/ Hydrocodone Bitart 1 tab Q4HP PRN PO 12/17/24 02:15 Ondansetron HCl 4 mg Q4HP PRN IV 12/17/24 02:15 Docusate Sodium 100 mg BIDPRN PRN PO 12/17/24 02:15 Acetaminophen 650 mg Q6HP PRN PO 12/17/24 02:15 Nitroglycerin 0.4 mg Q5MINP PRN SL 12/17/24 02:15 Morphine Sulfate 2 mg Q30M PRN IV 12/17/24 02:15 Losartan Potassium 25 mg DAILY PO 12/17/24 10:00 12/21/24 10:13 25 MG Furosemide 40 mg DAILY IV 12/17/24 10:00 12/20/24 10:17 40 MG Pantoprazole Sodium 40 mg DAILY@0600 PO 12/18/24 06:00 12/19/24 05:43 40 MG Albuterol 2.5 mg Q4HWA [facility] 12/17/24 18:00 12/20/24 22:02 2.5 MG Ipratropium [place] 0.5 mg Q4HWA [facility] 12/17/24 18:00 12/20/24 22:02 0.5 MG Enoxaparin Sodium 40 mg DAILY SC 12/18/24 10:00 12/21/24 10:14 40 MG Aspirin 81 mg DAILY PO 12/18/24 10:00 12/21/24 10:11 81 MG Atorvastatin Calcium 40 mg HS PO 12/17/24 22:00 12/20/24 21:30 40 MG Potassium Bicarbonate 25 meq DAILY PO 12/22/24 10:00 UNV Laboratory Results Laboratory Tests 12/18/24 06:50 12/20/24 10:41 Urinalysis Test 12/17/24 07:00 Urine Color Light-yellow (Yellow) Urine Clarity Clear (Clear) Urine pH 6.0 (5.0-9.0) Urine Specific [place] 1.012 (1.001-1.035) Urine Protein Negative (Negative) Urine Ketones Trace (Negative) Urine Blood Negative /uL (Negative) Urine Nitrite Negative (Negative) Urine Bilirubin Negative (Negative) Urine Urobilinogen Normal mg/dL (Negative) Urine Leukocyte Esterase Negative /uL (Negative) Urine RBC 1 /hpf (0 - 4) Urine Microscopic WBC 2 /HPF (0-5) Urine Squamous Epithelial Cells Few /hpf (<5) Urine Bacteria Few /hpf (None Seen) H Urine Glucose Normal mg/dL (Normal) Labs and/or images reviewed: Labs reviewed by me, Image(s) reviewed by me Assessment/Plan Assessment/Plan Impression: -acute hypoxic respiratory failure -acute on chronic systolic and diastolic heart failure -severe aortic stenosis -primary hypertension -dementia -coronary artery disease with a previous PCI -COPD -NSTEMI type 2 -nicotine dependence -metabolic encephalopathy Plan: -continue preload and afterload reduction -potassium replacement -cardiology consultation: Recommendations reviewed -bronchodilators -social service consultation to transfer to higher level of care for aortic valve replacement Total time spent with patient discussing and formulating plan of care: 35 minutes. This medical document was created using an electronic medical record system with [employer] dictation system. Although this document has been carefully reviewed, there may still be some phonetic and typographical errors. These areas are purely typographical due to imperfections of the software programs, and do not reflect any compromise in the patient's medical care. Plan discussed with: Patient, Other (RN) My Orders Orders - WALI PANDYA NP Procedure Category Date Status Time Basic Metabolic Panel LAB 12/21/24 Logged 12:45 Magnesium LAB 12/21/24 Logged 12:45 Potassium Effervesent PHA 12/21/24 Logged Tab (Klor-Con/Ef) 12:45 Potassium Effervesent PHA 12/22/24 Logged Tab (Klor-Con/Ef) 10:00 Date of Service: Dec 21, 2024 Billing Provider: WALI PANDYA NP Common Visit Codes: [id number] INP/OBS CARE(HIGH) WALI PANDYA NP Dec 21, 2024 12:58
[2024-12-21 13:51] LABS: Anion Gap 9 (5-15); Chloride 102 mmol/L (98-107); Sodium 143 mmol/L (136-145)
[2024-12-21 13:53] LABS: Calcium 9.2 mg/dL (8.7-10.4); Carbon Dioxide 32 mmol/L (20-31); Potassium 3.2 mmol/L (3.5-5.1)
[2024-12-21 13:58] LABS: BUN/Creatinine Ratio 13.0 (10.0-20.0); Blood Urea Nitrogen 10 mg/dL (9-23); Magnesium 2.0 mg/dL (1.6-2.6)
[2024-12-21 14:00] LABS: Glucose 160 mg/dL (74-106)
[2024-12-21] MEDS: POTASSIUM EFFERVESENT TAB 25 MEQ PO ONE (14:07)
--- NOTE | 2024-12-21 20:39 | DVHPN2 ---
Progress Note - Dictate Date Seen: Dec 21, 2024 Medical Necessity Reason Pt with a Central, PICC or Fol: No Subjective Patient was seen and evaluated in follow up. Per RN, patient is refusing multiple medications. She is stable on 2 LPM NC. VS are stable. Telemetry reviewed. vital signs Vital Sign Date Time Temp Pulse Resp B/P (MAP) Pulse Ox O2 Delivery O2 Flow Rate FiO2 12/21/24 10:13 130/69 12/21/24 10:13 54 12/21/24 09:00 98.0 15 99 98.0 12/21/24 08:05 Nasal Cannula* 2 28 Total Intake and Output 12/20/24 12/20/24 12/21/24 15:00 23:00 07:00 Intake Total 500 ml 300 ml Balance 500 ml 300 ml medications Current Medications Medications Dose Ordered Sig/Jeff Route Start Time Stop Time Status Last Admin Dose Admin Carvedilol 3.125 mg Q12HR PO 12/17/24 10:00 12/21/24 10:13 3.125 MG Famotidine 20 mg Q12HR IV 12/17/24 10:00 UNV Dextrose 50 ml UD PRN IV 12/17/24 02:15 Sodium Chloride 10 ml Q8HR IV 12/17/24 06:00 12/21/24 06:12 10 ML Acetaminophen/ Hydrocodone Bitart 1 tab Q4HP PRN PO 12/17/24 02:15 Ondansetron HCl 4 mg Q4HP PRN IV 12/17/24 02:15 Docusate Sodium 100 mg BIDPRN PRN PO 12/17/24 02:15 Acetaminophen 650 mg Q6HP PRN PO 12/17/24 02:15 Nitroglycerin 0.4 mg Q5MINP PRN SL 12/17/24 02:15 Morphine Sulfate 2 mg Q30M PRN IV 12/17/24 02:15 Losartan Potassium 25 mg DAILY PO 12/17/24 10:00 12/21/24 10:13 25 MG Furosemide 40 mg DAILY IV 12/17/24 10:00 12/20/24 10:17 40 MG Pantoprazole Sodium 40 mg DAILY@0600 PO 12/18/24 06:00 12/19/24 05:43 40 MG Albuterol 2.5 mg Q4HWA NEB 12/17/24 18:00 12/20/24 22:02 2.5 MG Ipratropium [place] 0.5 mg Q4HWA NEB 12/17/24 18:00 12/20/24 22:02 0.5 MG Enoxaparin Sodium 40 mg DAILY SC 12/18/24 10:00 12/21/24 10:14 40 MG Aspirin 81 mg DAILY PO 12/18/24 10:00 12/21/24 10:11 81 MG Atorvastatin Calcium 40 mg HS PO 12/17/24 22:00 12/20/24 21:30 40 MG objective GENERAL: Alert and oriented x 3. No acute distress. EYES: PERRL, EOMI. Anicteric. HENT: Moist mucous membranes. LUNGS: Clear to auscultation bilaterally. CARDIOVASCULAR: Regular rate and rhythm. ABDOMEN: Soft, nontender and nondistended. EXTREMITIES: No edema. NEUROLOGIC: No focal neurological deficits. SKIN: Warm, dry. laboratory and microbiology Laboratory Tests 12/20/24 10:41 12/18/24 06:50 Test 12/20/24 10:41 Range/Units Serum Glucose 147 H 74-106 mg/dL Problem List Elevated troponin. Chest pain. Acute respiratory failure. Acute on chronic systolic/diastolic heart failure. HTN. CAD s/p PCI. Dementia. COPD. Tobacco abuse. Encephalopathy. Assessment/Plan Continued all current supportive medical care. Aspirin. Coreg, Losartan. DVT prophylactics. Morphine and [place] for pain management. Additional plan as per the hospital course. A total of 25 minutes was spent reviewing the patient record, examining the patient, making a diagnostic and therapeutic plan, discussing this plan with medical personnel, following up on diagnostic studies and following the patient for clinical stability excluding any and all procedures. At least 50% of this time was spent in direct, [id number] contact. Plan discussed with: Patient RUTH BRODY MD Dec 21, 2024 12:25
[2024-12-22] VITALS (15 sets, daily range): BP systolic 92–145; BP diastolic 47–88; PULSE 55–70; RESP 14–20; TEMP 97.2–98.3; O2SAT 95–100
[2024-12-22] MEDS: POTASSIUM EFFERVESENT TAB 25 MEQ PO SCH (10:00)
--- NOTE | 2024-12-22 10:54 | DVHPN2 ---
Subjective same Reviewed: Care Plan, H&P, Labs, Medications, Previous Orders, Radiology Changes from previous H/P or p: No Changes General: Per HPI Objective Vitals Vital Signs Date Time Temp Pulse Resp B/P (MAP) Pulse Ox O2 Delivery O2 Flow Rate FiO2 12/22/24 09:00 97.7 65 16 92/50 (64) 98 97.7 12/22/24 07:32 Nasal Cannula 3.0 12/22/24 07:32 32 Intake/Output Intake and Output 12/22/24 07:00 Intake Total 1250 ml Balance 1250 ml Intake Oral 1250 ml # Voids 5 # Bowel Movements 2 General Appearance: Alert, Oriented X3, Cooperative, No acute distress HEENT: Atraumatic Lungs: Clear to auscultation, Normal air movement Cardiovascular: Regular rate, Other (2/6 systolic murmur in the aortic valve area) Abdomen: Normal bowel sounds, Soft, No tenderness Musculoskeletal: Normal sensory function, Normal motor function Medications Current Medications Medications Dose Ordered Sig/Jeff Route Start Time Stop Time Status Last Admin Dose Admin Carvedilol 3.125 mg Q12HR PO 12/17/24 10:00 12/21/24 10:13 3.125 MG Famotidine 20 mg Q12HR IV 12/17/24 10:00 UNV Dextrose 50 ml UD PRN IV 12/17/24 02:15 Sodium Chloride 10 ml Q8HR IV 12/17/24 06:00 12/22/24 05:53 10 ML Acetaminophen/ Hydrocodone Bitart 1 tab Q4HP PRN PO 12/17/24 02:15 Ondansetron HCl 4 mg Q4HP PRN IV 12/17/24 02:15 Docusate Sodium 100 mg BIDPRN PRN PO 12/17/24 02:15 Acetaminophen 650 mg Q6HP PRN PO 12/17/24 02:15 Nitroglycerin 0.4 mg Q5MINP PRN SL 12/17/24 02:15 Morphine Sulfate 2 mg Q30M PRN IV 12/17/24 02:15 Losartan Potassium 25 mg DAILY PO 12/17/24 10:00 12/21/24 10:13 25 MG Furosemide 40 mg DAILY IV 12/17/24 10:00 12/21/24 14:07 40 MG Pantoprazole Sodium 40 mg DAILY@0600 PO 12/18/24 06:00 12/19/24 05:43 40 MG Albuterol 2.5 mg Q4HWA [place] 12/17/24 18:00 12/22/24 07:32 2.5 MG Ipratropium [place] 0.5 mg Q4HWA [facility] 12/17/24 18:00 12/22/24 07:32 0.5 MG Enoxaparin Sodium 40 mg DAILY SC 12/18/24 10:00 12/22/24 10:00 40 MG Aspirin 81 mg DAILY PO 12/18/24 10:00 12/22/24 10:00 81 MG Atorvastatin Calcium 40 mg HS PO 12/17/24 22:00 12/20/24 21:30 40 MG Potassium Bicarbonate 25 meq DAILY PO 12/22/24 10:00 12/22/24 10:00 25 MEQ Laboratory Results Laboratory Tests 12/18/24 06:50 12/21/24 13:07 Chemistry Test 12/21/24 13:07 Calcium Level 9.2 mg/dL (8.7-10.4) Magnesium Level 2.0 mg/dL (1.6-2.6) Urinalysis Test 12/17/24 07:00 Urine Color Light-yellow (Yellow) Urine Clarity Clear (Clear) Urine pH 6.0 (5.0-9.0) Urine Specific [place] 1.012 (1.001-1.035) Urine Protein Negative (Negative) Urine Ketones Trace (Negative) Urine Blood Negative /uL (Negative) Urine Nitrite Negative (Negative) Urine Bilirubin Negative (Negative) Urine Urobilinogen Normal mg/dL (Negative) Urine Leukocyte Esterase Negative /uL (Negative) Urine RBC 1 /hpf (0 - 4) Urine Microscopic WBC 2 /HPF (0-5) Urine Squamous Epithelial Cells Few /hpf (<5) Urine Bacteria Few /hpf (None Seen) H Urine Glucose Normal mg/dL (Normal) Assessment/Plan Assessment/Plan Systolic and diastolic heart failure Aortic stenosis and 0.9 cm2 Non-STEMI LVH Coronary artery disease COPD Hypertension Dementia and encephalopathy Hypokalemia Plan: Replace potassium. Recheck labs. Continue current plan of care. Possible discharge home tomorrow and follow up as outpatient with Cardiology, pulmonology and cardiovascular surgeon for the aortic stenosis Plan discussed with: Patient, Other (Nursing) My Orders Orders - EVERTON RIVERA MD Procedure Category Date Status Time Basic Metabolic Panel LAB 10/11/25 Transmitted 10:51 Potassium Effervesent PHA 12/22/24 Transmitted Tab (Klor-Con/Ef) 11:00 Complete Blood Count LAB 12/23/24 Verified 06:00 Comprehensive LAB 12/23/24 Verified Metabolic Panel 06:00 B-Type Natriuretic LAB 12/23/24 Verified Peptide 06:00 Chest Portable XY 12/23/24 Transmitted 06:00 Date of Service: Dec 22, 2024 Billing Provider: EVERTON RIVERA MD Common Visit Codes: [id number] INP/OBS CARE(HIGH) EVERTON RIVERA MD Dec 22, 2024 10:53
[2024-12-22] MEDS: POTASSIUM EFFERVESENT TAB 25 MEQ PO ONE (12:04)
[2024-12-22 13:13] LABS: Chloride 101 mmol/L (98-107); Potassium 3.9 mmol/L (3.5-5.1); Sodium 143 mmol/L (136-145)
[2024-12-22 13:14] LABS: Anion Gap 9 (5-15); Calcium 9.2 mg/dL (8.7-10.4)
[2024-12-22 13:19] LABS: BUN/Creatinine Ratio 13.6 (10.0-20.0); Blood Urea Nitrogen 12 mg/dL (9-23)
[2024-12-22 13:26] LABS: Carbon Dioxide 33 mmol/L (20-31); Glucose 138 mg/dL (74-106)
[2024-12-23] VITALS (18 sets, daily range): BP systolic 82–137; BP diastolic 43–78; PULSE 51–67; RESP 12–18; TEMP 97.4–97.8; O2SAT 94–100
--- NOTE | 2024-12-23 00:45 | DVHPN2 ---
Progress Note - Dictate Date Seen: Dec 22, 2024 Medical Necessity Reason Pt with a Central, PICC or Fol: No Subjective Patient was seen and evaluated in follow up. No overnight events. Patient continues to refuse medications. She is now on 3 LPM NC. Telemetry reviewed. vital signs Vital Sign Date Time Temp Pulse Resp B/P (MAP) Pulse Ox O2 Delivery O2 Flow Rate FiO2 12/22/24 10:00 92/50 12/22/24 10:00 65 12/22/24 09:00 97.7 16 98 97.7 12/22/24 07:32 Nasal Cannula 3.0 12/22/24 07:32 32 Total Intake and Output 12/21/24 12/21/24 12/22/24 15:00 23:00 07:00 Intake Total 800 ml 450 ml Balance 800 ml 450 ml medications Current Medications Medications Dose Ordered Sig/Jeff Route Start Time Stop Time Status Last Admin Dose Admin Carvedilol 3.125 mg Q12HR PO 12/17/24 10:00 12/21/24 10:13 3.125 MG Famotidine 20 mg Q12HR IV 12/17/24 10:00 UNV Dextrose 50 ml UD PRN IV 12/17/24 02:15 Sodium Chloride 10 ml Q8HR IV 12/17/24 06:00 12/22/24 05:53 10 ML Acetaminophen/ Hydrocodone Bitart 1 tab Q4HP PRN PO 12/17/24 02:15 Ondansetron HCl 4 mg Q4HP PRN IV 12/17/24 02:15 Docusate Sodium 100 mg BIDPRN PRN PO 12/17/24 02:15 Acetaminophen 650 mg Q6HP PRN PO 12/17/24 02:15 Nitroglycerin 0.4 mg Q5MINP PRN SL 12/17/24 02:15 Morphine Sulfate 2 mg Q30M PRN IV 12/17/24 02:15 Losartan Potassium 25 mg DAILY PO 12/17/24 10:00 12/21/24 10:13 25 MG Furosemide 40 mg DAILY IV 12/17/24 10:00 12/21/24 14:07 40 MG Pantoprazole Sodium 40 mg DAILY@0600 PO 12/18/24 06:00 12/19/24 05:43 40 MG Albuterol 2.5 mg Q4HWA NEB 12/17/24 18:00 12/22/24 07:32 2.5 MG Ipratropium [place] 0.5 mg Q4HWA NEB 12/17/24 18:00 12/22/24 07:32 0.5 MG Enoxaparin Sodium 40 mg DAILY SC 12/18/24 10:00 12/22/24 10:00 40 MG Aspirin 81 mg DAILY PO 12/18/24 10:00 12/22/24 10:00 81 MG Atorvastatin Calcium 40 mg HS PO 12/17/24 22:00 12/20/24 21:30 40 MG Potassium Bicarbonate 25 meq DAILY PO 12/22/24 10:00 12/22/24 10:00 25 MEQ objective GENERAL: Alert and oriented x 3. No acute distress. EYES: PERRL, EOMI. Anicteric. HENT: Moist mucous membranes. LUNGS: Clear to auscultation bilaterally. CARDIOVASCULAR: Regular rate and rhythm. ABDOMEN: Soft, nontender and nondistended. EXTREMITIES: No edema. NEUROLOGIC: No focal neurological deficits. SKIN: Warm, dry. laboratory and microbiology Laboratory Tests 12/21/24 13:07 12/18/24 06:50 Test 12/21/24 13:07 Range/Units Serum Glucose 160 H 74-106 mg/dL Problem List Elevated troponin. Chest pain. Acute respiratory failure. Acute on chronic systolic/diastolic heart failure. HTN. CAD s/p PCI. Dementia. COPD. Tobacco abuse. Encephalopathy. Assessment/Plan Continued all current supportive medical care. Aspirin. Coreg, Losartan. DVT prophylactics. Morphine and [place] for pain management. Additional plan as per the hospital course. A total of 25 minutes was spent reviewing the patient record, examining the patient, making a diagnostic and therapeutic plan, discussing this plan with medical personnel, following up on diagnostic studies and following the patient for clinical stability excluding any and all procedures. At least 50% of this time was spent in direct, [id number] contact. Plan discussed with: Patient RUTH BRODY MD Dec 22, 2024 12:37
--- NOTE | 2024-12-23 05:38 | DVH ---
EXAM: XY CHEST PORTABLE HISTORY: fu 84-year-old female with history of CHF, follow-up. COMPARISON: XY CHEST PORTABLE on DOS: 12/19/24, XY CHEST PORTABLE on DOS: 12/16/24, CXR1 on DOS: 3, CHEST XRAY 1 VIEW on DOS: 05/02/22 TECHNIQUE: Portable AP view of the chest was performed. FINDINGS: There is diffuse bilateral interstitial prominence, slightly increased since the previous chest x-ray . No pneumothorax or consolidative infiltrates. The heart is enlarged. IMPRESSION: Cardiomegaly with Increased interstitial prominence consistent with worsening CHF.
[2024-12-23 06:34] LABS: Hematocrit 34.1 % (36.0-46.0); Hemoglobin 11.5 g/dL (12.2-16.2); Mean Corpuscular Hemoglobin 29.4 pg (28.0-32.0); Mean Corpuscular Volume 87.3 fL (80.0-100.0); Nucleated Red Blood Cells % 0.0 %
[2024-12-23 06:44] LABS: Alanine Aminotransferase 10 U/L (7-40); Albumin 3.9 g/dL (3.2-4.8); Alkaline Phosphatase 60 U/L (46-116); Anion Gap 7 (5-15); BUN/Creatinine Ratio 15.6 (10.0-20.0); Bilirubin, Total 0.6 mg/dL (0.2-1.0); Blood Urea Nitrogen 12 mg/dL (9-23); Calcium 9.5 mg/dL (8.7-10.4); Chloride 102 mmol/L (98-107); Potassium 4.2 mmol/L (3.5-5.1); Sodium 142 mmol/L (136-145); Total Protein 6.4 g/dL (5.7-8.2)
[2024-12-23 06:50] LABS: Carbon Dioxide 33 mmol/L (20-31); Glucose 111 mg/dL (74-106)
--- NOTE | 2024-12-23 09:07 | DVHPN2 ---
Subjective Feels okay Reviewed: Care Plan, H&P, Labs, Medications, Previous Orders, Radiology Changes from previous H/P or p: No Changes General: Per HPI Objective Vitals Vital Signs Date Time Temp Pulse Resp B/P (MAP) Pulse Ox O2 Delivery O2 Flow Rate FiO2 12/23/24 08:33 97.7 52 12 99/54 (69) 99 97.7 12/23/24 07:02 Nasal Cannula* 2 28 Intake/Output Intake and Output 12/23/24 07:00 Intake Total 940 ml Balance 940 ml Intake Oral 940 ml # Voids 4 General Appearance: Alert, Oriented X3, Cooperative, No acute distress HEENT: Atraumatic Lungs: Clear to auscultation, Normal air movement Cardiovascular: Regular rate, Other (2/6 systolic murmur in the aortic valve area) Abdomen: Normal bowel sounds, Soft, No tenderness Musculoskeletal: Normal sensory function, Normal motor function Medications Current Medications Medications Dose Ordered Sig/Jeff Route Start Time Stop Time Status Last Admin Dose Admin Carvedilol 3.125 mg Q12HR PO 12/17/24 10:00 12/21/24 10:13 3.125 MG Famotidine 20 mg Q12HR IV 12/17/24 10:00 UNV Dextrose 50 ml UD PRN IV 12/17/24 02:15 Sodium Chloride 10 ml Q8HR IV 12/17/24 06:00 12/23/24 05:40 10 ML Acetaminophen/ Hydrocodone Bitart 1 tab Q4HP PRN PO 12/17/24 02:15 Ondansetron HCl 4 mg Q4HP PRN IV 12/17/24 02:15 Docusate Sodium 100 mg BIDPRN PRN PO 12/17/24 02:15 Acetaminophen 650 mg Q6HP PRN PO 12/17/24 02:15 Nitroglycerin 0.4 mg Q5MINP PRN SL 12/17/24 02:15 Morphine Sulfate 2 mg Q30M PRN IV 12/17/24 02:15 Losartan Potassium 25 mg DAILY PO 12/17/24 10:00 12/21/24 10:13 25 MG Furosemide 40 mg DAILY IV 12/17/24 10:00 12/21/24 14:07 40 MG Pantoprazole Sodium 40 mg DAILY@0600 PO 12/18/24 06:00 12/19/24 05:43 40 MG Albuterol 2.5 mg Q4HWA [facility] 12/17/24 18:00 12/23/24 07:02 2.5 MG Ipratropium [place] 0.5 mg Q4HWA [facility] 12/17/24 18:00 12/23/24 07:02 0.5 MG Enoxaparin Sodium 40 mg DAILY SC 12/18/24 10:00 12/22/24 10:00 40 MG Aspirin 81 mg DAILY PO 12/18/24 10:00 12/22/24 10:00 81 MG Atorvastatin Calcium 40 mg HS PO 12/17/24 22:00 12/22/24 21:18 40 MG Potassium Bicarbonate 25 meq DAILY PO 12/22/24 10:00 12/22/24 10:00 25 MEQ Laboratory Results Laboratory Tests 12/23/24 05:17 Chemistry Test 12/22/24 12:17 12/23/24 05:17 Calcium Level 9.2 mg/dL (8.7-10.4) 9.5 mg/dL (8.7-10.4) Albumin 3.9 g/dL (3.2-4.8) Total Protein 6.4 g/dL (5.7-8.2) Cardiac Markers Test 12/23/24 05:17 B-Type Natriuretic Peptide 220.60 pg/mL (0-100) LFT Test 12/23/24 05:17 Alanine Aminotransferase (ALT) 10 U/L (7-40) Alkaline Phosphatase 60 U/L (46-116) Aspartate Amino Transferase (AST) 17 U/L (13-40) Total Bilirubin 0.6 mg/dL (0.2-1.0) Urinalysis Test 12/17/24 07:00 Urine Color Light-yellow (Yellow) Urine Clarity Clear (Clear) Urine pH 6.0 (5.0-9.0) Urine Specific [place] 1.012 (1.001-1.035) Urine Protein Negative (Negative) Urine Ketones Trace (Negative) Urine Blood Negative /uL (Negative) Urine Nitrite Negative (Negative) Urine Bilirubin Negative (Negative) Urine Urobilinogen Normal mg/dL (Negative) Urine Leukocyte Esterase Negative /uL (Negative) Urine RBC 1 /hpf (0 - 4) Urine Microscopic WBC 2 /HPF (0-5) Urine Squamous Epithelial Cells Few /hpf (<5) Urine Bacteria Few /hpf (None Seen) H Urine Glucose Normal mg/dL (Normal) Assessment/Plan Assessment/Plan Systolic and diastolic heart failure Aortic stenosis and 0.9 cm2 Non-STEMI LVH Coronary artery disease COPD Hypertension Dementia and encephalopathy Hypokalemia Plan: Chest x-ray showing more congestion but the patient clinically feels better and BNP is better. Continue current plan of care. Possible discharge home tomorrow and follow up with Cardiology and Cardiothoracic surgeon as outpatient Plan discussed with: Patient My Orders Orders - EVERTON RIVERA MD Procedure Category Date Status Time Chest Portable XY 12/23/24 Resulted 06:00 Date of Service: Dec 23, 2024 Billing Provider: EVERTON RIVERA MD Common Visit Codes: [id number] INP/OBS CARE(HIGH) EVERTON RIVERA MD Dec 23, 2024 09:07
[2024-12-23] MEDS: FUROSEMIDE 20 MG/2 ML VIAL IV ONE (14:00)
--- NOTE | 2024-12-23 23:50 | DVHPN2 ---
Progress Note - Dictate Date Seen: Dec 23, 2024 Medical Necessity Reason Pt with a Central, PICC or Fol: No Subjective Patient was seen and evaluated in follow up. Overnight, the patient had episodes of agitation. She is continuing to refuse medications. Chest x-ray showed cardiomegaly with Increased interstitial prominence consistent with worsening CHF. Telemetry reviewed. vital signs Vital Sign Date Time Temp Pulse Resp B/P (MAP) Pulse Ox O2 Delivery O2 Flow Rate FiO2 12/23/24 12:52 97.8 63 16 96/55 (69) 94 97.8 12/23/24 10:07 Nasal Cannula* 2 28 Total Intake and Output 12/22/24 12/22/24 12/23/24 15:00 23:00 07:00 Intake Total 340 ml 600 ml Balance 340 ml 600 ml medications Current Medications Medications Dose Ordered Sig/Jeff Route Start Time Stop Time Status Last Admin Dose Admin Carvedilol 3.125 mg Q12HR PO 12/17/24 10:00 12/21/24 10:13 3.125 MG Famotidine 20 mg Q12HR IV 12/17/24 10:00 UNV Dextrose 50 ml UD PRN IV 12/17/24 02:15 Sodium Chloride 10 ml Q8HR IV 12/17/24 06:00 12/23/24 05:40 10 ML Acetaminophen/ Hydrocodone Bitart 1 tab Q4HP PRN PO 12/17/24 02:15 Ondansetron HCl 4 mg Q4HP PRN IV 12/17/24 02:15 Docusate Sodium 100 mg BIDPRN PRN PO 12/17/24 02:15 Acetaminophen 650 mg Q6HP PRN PO 12/17/24 02:15 Nitroglycerin 0.4 mg Q5MINP PRN SL 12/17/24 02:15 Morphine Sulfate 2 mg Q30M PRN IV 12/17/24 02:15 Losartan Potassium 25 mg DAILY PO 12/17/24 10:00 12/21/24 10:13 25 MG Furosemide 40 mg DAILY IV 12/17/24 10:00 12/21/24 14:07 40 MG Pantoprazole Sodium 40 mg DAILY@0600 PO 12/18/24 06:00 12/19/24 05:43 40 MG Albuterol 2.5 mg Q4HWA NEB 12/17/24 18:00 12/23/24 13:38 2.5 MG Ipratropium [place] 0.5 mg Q4HWA NEB 12/17/24 18:00 12/23/24 13:38 0.5 MG Enoxaparin Sodium 40 mg DAILY SC 12/18/24 10:00 12/23/24 09:14 40 MG Aspirin 81 mg DAILY PO 12/18/24 10:00 12/23/24 09:14 81 MG Atorvastatin Calcium 40 mg HS PO 12/17/24 22:00 12/22/24 21:18 40 MG Potassium Bicarbonate 25 meq DAILY PO 12/22/24 10:00 12/23/24 09:13 25 MEQ objective GENERAL: Alert and oriented x 3. No acute distress. EYES: PERRL, EOMI. Anicteric. HENT: Moist mucous membranes. LUNGS: Clear to auscultation bilaterally. CARDIOVASCULAR: Regular rate and rhythm. ABDOMEN: Soft, nontender and nondistended. EXTREMITIES: No edema. NEUROLOGIC: No focal neurological deficits. SKIN: Warm, dry. laboratory and microbiology Laboratory Tests 12/23/24 05:17 Test 12/23/24 05:17 Range/Units Serum Glucose 111 H 74-106 mg/dL Problem List Elevated troponin. Chest pain. Acute respiratory failure. Acute on chronic systolic/diastolic heart failure. HTN. CAD s/p PCI. Dementia. COPD. Tobacco abuse. Encephalopathy. Assessment/Plan Continued all current supportive medical care. Aspirin. DVT prophylactics. Diuretics with Lasix. Morphine and [place] for pain management. Additional plan as per the hospital course. A total of 25 minutes was spent reviewing the patient record, examining the patient, making a diagnostic and therapeutic plan, discussing this plan with medical personnel, following up on diagnostic studies and following the patient for clinical stability excluding any and all procedures. At least 50% of this time was spent in direct, [id number] contact. Plan discussed with: Patient RUTH BRODY MD Dec 23, 2024 13:48
[2024-12-24] VITALS (10 sets, daily range): BP systolic 80–139; BP diastolic 42–56; PULSE 55–68; RESP 12–18; TEMP 97.8–98.5; O2SAT 90–100
--- NOTE | 2024-12-24 06:27 | DVH ---
CHEST RADIOGRAPH Indication: Follow-up. Technique: Single frontal view of the chest was obtained Comparison: XY CHEST PORTABLE on DOS: 12/23/24 FINDINGS: Lines and Tubes: None Lungs: Bilateral interstitial prominence similar to prior study. Pleura: No effusion. No pneumothorax. Cardiomediastinal contours: Stable. Bones: No acute osseous abnormality. IMPRESSION: 1. Pulmonary vascular congestion similar to prior study.
--- NOTE | 2024-12-24 10:25 | DVHPN2 ---
Progress Note Date Seen: Dec 24, 2024 Medical Necessity Reason Pt with a Central, PICC or Fol: No Subjective Patient reports: No new complaints Review of Systems: HEENT:Normal, CVS:Normal, RESPIRATORY:Normal, GI:Normal, :Normal, MSK:Normal, NEURO:Normal Objective vital signs Vital Sign Date Time Temp Pulse Resp B/P (MAP) Pulse Ox O2 Delivery O2 Flow Rate FiO2 12/24/24 09:40 58 16 98 12/24/24 09:34 Nasal Cannula 2.0 12/24/24 09:34 28 12/24/24 09:00 97.8 120/48 (72) 97.8 Total Intake and Output 12/23/24 12/23/24 12/24/24 15:00 23:00 07:00 Intake Total 480 ml Balance 480 ml medications Current Medications Medications Dose Ordered Sig/Jeff Route Start Time Stop Time Status Last Admin Dose Admin Carvedilol 3.125 mg Q12HR PO 12/17/24 10:00 12/21/24 10:13 3.125 MG Famotidine 20 mg Q12HR IV 12/17/24 10:00 UNV Dextrose 50 ml UD PRN IV 12/17/24 02:15 Sodium Chloride 10 ml Q8HR IV 12/17/24 06:00 12/24/24 06:00 10 ML Acetaminophen/ Hydrocodone Bitart 1 tab Q4HP PRN PO 12/17/24 02:15 Ondansetron HCl 4 mg Q4HP PRN IV 12/17/24 02:15 Docusate Sodium 100 mg BIDPRN PRN PO 12/17/24 02:15 Acetaminophen 650 mg Q6HP PRN PO 12/17/24 02:15 Nitroglycerin 0.4 mg Q5MINP PRN SL 12/17/24 02:15 Morphine Sulfate 2 mg Q30M PRN IV 12/17/24 02:15 Losartan Potassium 25 mg DAILY PO 12/17/24 10:00 12/21/24 10:13 25 MG Furosemide 40 mg DAILY IV 12/17/24 10:00 12/21/24 14:07 40 MG Pantoprazole Sodium 40 mg DAILY@0600 PO 12/18/24 06:00 12/19/24 05:43 40 MG Albuterol 2.5 mg Q4HWA NEB 12/17/24 18:00 12/24/24 09:34 2.5 MG Ipratropium [place] 0.5 mg Q4HWA NEB 12/17/24 18:00 12/24/24 09:34 0.5 MG Enoxaparin Sodium 40 mg DAILY SC 12/18/24 10:00 12/23/24 09:14 40 MG Aspirin 81 mg DAILY PO 12/18/24 10:00 12/23/24 09:14 81 MG Atorvastatin Calcium 40 mg HS PO 12/17/24 22:00 12/23/24 21:42 40 MG Potassium Bicarbonate 25 meq DAILY PO 12/22/24 10:00 12/23/24 09:13 25 MEQ Examination: GENERAL:Normal, HEENT:Normal, NECK:Normal, LUNGS:Normal, CVS:Normal, ABDOMEN:Normal, MSK:Normal, SKIN:Normal, NEURO:Normal, :Normal laboratory and microbiology Laboratory Tests 12/23/24 05:17 Test 12/23/24 05:17 Range/Units Serum Glucose 111 H 74-106 mg/dL Problem List/Assessment/Plan Problem List/Assessment/Plan #1 acute resp failure: cont oxygen #2 acute on chronic systolic/diastolic heart failure: lasix iv #3 severe aortic stenosis: needs c angio #4 htn #5 dementia #6 cad s/p pci #7 copd ? exacerbation #8 nstemi ?type 2 #9 tobacco abuse: advised to quit, refused nicotine patch- time spent 11 mins #10 encephalopathy ?metabolic transfer to [place]/higher level of care for critical aortic stenosis advance care planning- full code- time spent 19 mins Plan discussed with: Patient, Daughter Dietary Evaluation Review Comments: 1) Consider changing 60g CCHO diet to cardiac NCS diet d/t advanced age and controlled HbA1c 2) Encourage optimal PO intake 3) Follow-up with cardiology and pulmonology 4) Continue to monitor I&O, labs, and skin integrity Expected Outcomes/Goals: 1) appetite and labs to improve 2) f/u in 3-5 days Date of Service: Dec 24, 2024 Billing Provider: ARTEMIO HARLEY MD Common Visit Codes: [id number] INP/OBS CARE(HIGH) ARTEMIO HARLEY MD Dec 24, 2024 10:25
[2024-12-24] MEDS: ALBUTEROL SULF 2.5 MG/0.5ML(0.5%) NEB SOLN NEB SCH (12:59)
[2024-12-24] MEDS: IPRATROPIUM BROM 0.5 MG/2.5ML INH SOL NEB SCH (12:59)
--- NOTE | 2024-12-24 15:26 | DVHPN2 ---
Progress Note Date Seen: Dec 24, 2024 Medical Necessity Reason Pt with a Central, PICC or Fol: No Subjective Patient reports: Feels better Other Systems: pt seen with cv team and RN pt is awake and conversant properly she remembers [facility] few years ago, but never had a workup at [place] Objective vital signs Vital Sign Date Time Temp Pulse Resp B/P (MAP) Pulse Ox O2 Delivery O2 Flow Rate FiO2 12/24/24 13:00 97.9 58 12 80/42 (55) 95 97.9 12/24/24 09:34 Nasal Cannula 2.0 12/24/24 09:34 28 Total Intake and Output 12/23/24 12/23/24 12/24/24 15:00 23:00 07:00 Intake Total 480 ml Balance 480 ml medications Current Medications Medications Dose Ordered Sig/Jeff Route Start Time Stop Time Status Last Admin Dose Admin Carvedilol 3.125 mg Q12HR PO 12/17/24 10:00 12/21/24 10:13 3.125 MG Famotidine 20 mg Q12HR IV 12/17/24 10:00 UNV Dextrose 50 ml UD PRN IV 12/17/24 02:15 Sodium Chloride 10 ml Q8HR IV 12/17/24 06:00 12/24/24 06:00 10 ML Acetaminophen/ Hydrocodone Bitart 1 tab Q4HP PRN PO 12/17/24 02:15 Ondansetron HCl 4 mg Q4HP PRN IV 12/17/24 02:15 Docusate Sodium 100 mg BIDPRN PRN PO 12/17/24 02:15 Acetaminophen 650 mg Q6HP PRN PO 12/17/24 02:15 Nitroglycerin 0.4 mg Q5MINP PRN SL 12/17/24 02:15 Morphine Sulfate 2 mg Q30M PRN IV 12/17/24 02:15 Losartan Potassium 25 mg DAILY PO 12/17/24 10:00 12/24/24 10:00 25 MG Furosemide 40 mg DAILY IV 12/17/24 10:00 12/24/24 10:00 40 MG Pantoprazole Sodium 40 mg DAILY@0600 PO 12/18/24 06:00 12/19/24 05:43 40 MG Enoxaparin Sodium 40 mg DAILY SC 12/18/24 10:00 12/24/24 10:00 40 MG Aspirin 81 mg DAILY PO 12/18/24 10:00 12/24/24 10:00 81 MG Atorvastatin Calcium 40 mg HS PO 12/17/24 22:00 12/23/24 21:42 40 MG Potassium Bicarbonate 25 meq DAILY PO 12/22/24 10:00 12/24/24 10:00 25 MEQ Albuterol 2.5 mg Q6HWA [facility] 12/24/24 12:00 Ipratropium [place] 0.5 mg Q6HWA [facility] 12/24/24 12:00 Examination: GENERAL:Abnormal, HEENT:Abnormal, LUNGS:Abnormal, CVS:Abnormal, ABDOMEN:Abnormal laboratory and microbiology Laboratory Tests 12/23/24 05:17 Test 12/23/24 05:17 Range/Units Serum Glucose 111 H 74-106 mg/dL Problem List/Assessment/Plan Problem List/Assessment/Plan severe sob ckd htn nstemi [facility] tomorrow pt needs close eventual fu with [facility], she was dx with severe 2 years ago but has no eval with [place] she is aware of , Plan discussed with: Patient Dietary Evaluation Review Comments: 1) Consider changing 60g CCHO diet to cardiac NCS diet d/t advanced age and controlled HbA1c 2) Encourage optimal PO intake 3) Follow-up with cardiology and pulmonology 4) Continue to monitor I&O, labs, and skin integrity Expected Outcomes/Goals: 1) appetite and labs to improve 2) f/u in 3-5 days Date of Service: Dec 24, 2024 Billing Provider: ELY YOUNGBLOOD MD Common Visit Codes: NOT BILLABLE ELY YOUNGBLOOD MD Dec 24, 2024 15:26
--- NOTE | 2024-12-24 23:07 | DVHPN2 ---
Progress Note - Dictate Date Seen: Dec 24, 2024 Medical Necessity Reason Pt with a Central, PICC or Fol: No Subjective Patient was seen and evaluated in follow up. Patient is on 2 LPM NC. Troponin is 30. Echocardiogram is ordered. Chest x-ray shows pulmonary vascular congestion similar to prior study. Telemetry reviewed. vital signs Vital Sign Date Time Temp Pulse Resp B/P (MAP) Pulse Ox O2 Delivery O2 Flow Rate FiO2 12/24/24 21:44 53 110/62 12/24/24 16:50 98.5 12 100 98.5 12/24/24 09:34 Nasal Cannula 2.0 12/24/24 09:34 28 Total Intake and Output 12/23/24 12/23/24 12/24/24 15:00 23:00 07:00 Intake Total 480 ml Balance 480 ml medications Current Medications Medications Dose Ordered Sig/Jeff Route Start Time Stop Time Status Last Admin Dose Admin Carvedilol 3.125 mg Q12HR PO 12/17/24 10:00 12/21/24 10:13 3.125 MG Famotidine 20 mg Q12HR IV 12/17/24 10:00 UNV Dextrose 50 ml UD PRN IV 12/17/24 02:15 Sodium Chloride 10 ml Q8HR IV 12/17/24 06:00 12/24/24 21:44 10 ML Acetaminophen/ Hydrocodone Bitart 1 tab Q4HP PRN PO 12/17/24 02:15 Ondansetron HCl 4 mg Q4HP PRN IV 12/17/24 02:15 Docusate Sodium 100 mg BIDPRN PRN PO 12/17/24 02:15 Acetaminophen 650 mg Q6HP PRN PO 12/17/24 02:15 Nitroglycerin 0.4 mg Q5MINP PRN SL 12/17/24 02:15 Morphine Sulfate 2 mg Q30M PRN IV 12/17/24 02:15 Losartan Potassium 25 mg DAILY PO 12/17/24 10:12/24/24 10:00 25 MG Furosemide 40 mg DAILY IV 12/17/24 10:12/24/24 10:00 40 MG Pantoprazole Sodium 40 mg DAILY@0600 PO 12/18/24 06:00 12/19/24 05:43 40 MG Enoxaparin Sodium 40 mg DAILY SC 12/18/24 10:00 12/24/24 10:00 40 MG Aspirin 81 mg DAILY PO 12/18/24 10:00 12/24/24 10:00 81 MG Atorvastatin Calcium 40 mg HS PO 12/17/24 22:00 12/24/24 21:44 40 MG Potassium Bicarbonate 25 meq DAILY PO 12/22/24 10:00 12/24/24 10:00 25 MEQ Albuterol 2.5 mg Q6HWA [facility] 12/24/24 12:00 Ipratropium [place] 0.5 mg Q6HWA [facility] 12/24/24 12:00 objective GENERAL: Alert and oriented x 3. No acute distress. EYES: PERRL, EOMI. Anicteric. HENT: Moist mucous membranes. LUNGS: Clear to auscultation bilaterally. CARDIOVASCULAR: Regular rate and rhythm. ABDOMEN: Soft, nontender and nondistended. EXTREMITIES: No edema. NEUROLOGIC: No focal neurological deficits. SKIN: Warm, dry. laboratory and microbiology Laboratory Tests 12/23/24 05:17 Test 12/23/24 05:17 Range/Units Serum Glucose 111 H 74-106 mg/dL Problem List Elevated troponin. Chest pain. Acute respiratory failure. Acute on chronic systolic/diastolic heart failure. HTN. CAD s/p PCI. Dementia. COPD. Tobacco abuse. Encephalopathy. Assessment/Plan Continued all current supportive medical care. Aspirin. DVT prophylactics. Diuretics with Lasix. Morphine and [place] for pain management. Additional plan as per the hospital course. A total of 25 minutes was spent reviewing the patient record, examining the patient, making a diagnostic and therapeutic plan, discussing this plan with medical personnel, following up on diagnostic studies and following the patient for clinical stability excluding any and all procedures. At least 50% of this time was spent in direct, [id number] contact. Dietary Evaluation Review Comments: 1) Consider changing 60g CCHO diet to cardiac NCS diet d/t advanced age and controlled HbA1c 2) Encourage optimal PO intake 3) Follow-up with cardiology and pulmonology 4) Continue to monitor I&O, labs, and skin integrity Expected Outcomes/Goals: 1) appetite and labs to improve 2) f/u in 3-5 days Plan discussed with: Patient RUTH BRODY MD Dec 24, 2024 23:07
[2024-12-25] VITALS (21 sets, daily range): BP systolic 74–132; BP diastolic 45–68; PULSE 44–94; RESP 13–19; TEMP 97–98.3; O2SAT 54–100
[2024-12-25 05:54] LABS: Hematocrit 36.3 % (36.0-46.0); Hemoglobin 12.0 g/dL (12.2-16.2); Mean Corpuscular Hemoglobin 29.1 pg (28.0-32.0); Mean Corpuscular Volume 87.7 fL (80.0-100.0); Nucleated Red Blood Cells % 0.3 %
[2024-12-25 06:05] LABS: Anion Gap 9 (5-15); Chloride 103 mmol/L (98-107); Sodium 144 mmol/L (136-145)
[2024-12-25 06:06] LABS: Calcium 9.4 mg/dL (8.7-10.4)
[2024-12-25 06:08] LABS: Carbon Dioxide 32 mmol/L (20-31); Potassium 3.5 mmol/L (3.5-5.1)
[2024-12-25 06:11] LABS: BUN/Creatinine Ratio 9.0 (10.0-20.0); Glucose 96 mg/dL (74-106)
[2024-12-25 06:19] LABS: Blood Urea Nitrogen 6 mg/dL (9-23)
[2024-12-25 07:27] LABS: INR 1.08 (0.9-1.15); Partial Thromboplastin Time 34.7 SEC (24.5-34.5); Prothrombin Time 11.4 sec (9.3-11.8)
--- NOTE | 2024-12-25 09:54 | DVHPN2 ---
Progress Note Date Seen: Dec 25, 2024 Medical Necessity Reason Pt with a Central, PICC or Fol: No Subjective Patient reports: No new complaints Review of Systems: HEENT:Normal, CVS:Normal, RESPIRATORY:Normal, GI:Normal, :Normal, MSK:Normal, NEURO:Normal Objective vital signs Vital Sign Date Time Temp Pulse Resp B/P (MAP) Pulse Ox O2 Delivery O2 Flow Rate FiO2 12/25/24 08:00 57 17 93 Room Air* 0 21 12/25/24 04:42 98.1 98/49 (65) 98.1 Total Intake and Output 12/24/24 12/24/24 12/25/24 15:00 23:00 07:00 Intake Total 240 ml 0 ml Balance 240 ml 0 ml medications Current Medications Medications Dose Ordered Sig/Jeff Route Start Time Stop Time Status Last Admin Dose Admin Carvedilol 3.125 mg Q12HR PO 12/17/24 10:00 12/21/24 10:13 3.125 MG Famotidine 20 mg Q12HR IV 12/17/24 10:00 UNV Dextrose 50 ml UD PRN IV 12/17/24 02:15 Sodium Chloride 10 ml Q8HR IV 12/17/24 06:00 12/25/24 05:57 10 ML Acetaminophen/ Hydrocodone Bitart 1 tab Q4HP PRN PO 12/17/24 02:15 Ondansetron HCl 4 mg Q4HP PRN IV 12/17/24 02:15 Docusate Sodium 100 mg BIDPRN PRN PO 12/17/24 02:15 Acetaminophen 650 mg Q6HP PRN PO 12/17/24 02:15 Nitroglycerin 0.4 mg Q5MINP PRN SL 12/17/24 02:15 Morphine Sulfate 2 mg Q30M PRN IV 12/17/24 02:15 Losartan Potassium 25 mg DAILY PO 12/17/24 10:00 12/24/24 10:00 25 MG Furosemide 40 mg DAILY IV 12/17/24 10:12/24/24 10:00 40 MG Pantoprazole Sodium 40 mg DAILY@0600 PO 12/18/24 06:00 12/19/24 05:43 40 MG Enoxaparin Sodium 40 mg DAILY SC 12/18/24 10:00 12/24/24 10:00 40 MG Aspirin 81 mg DAILY PO 12/18/24 10:00 12/24/24 10:00 81 MG Atorvastatin Calcium 40 mg HS PO 12/17/24 22:00 12/24/24 21:44 40 MG Potassium Bicarbonate 25 meq DAILY PO 12/22/24 10:00 12/24/24 10:00 25 MEQ Albuterol 2.5 mg Q6HWA [facility] 12/24/24 12:00 12/25/24 07:00 2.5 MG Ipratropium [place] 0.5 mg Q6HWA [facility] 12/24/24 12:00 12/25/24 07:00 0.5 MG Examination: GENERAL:Normal, HEENT:Normal, NECK:Normal, LUNGS:Normal, LUNGS:Abnormal (on oxygen), CVS:Normal, ABDOMEN:Normal, MSK:Normal, SKIN:Normal, NEURO:Normal, :Normal laboratory and microbiology Laboratory Tests 12/25/24 05:01 Test 12/25/24 05:01 Range/Units Serum Glucose 96 74-106 mg/dL Problem List/Assessment/Plan Problem List/Assessment/Plan #1 acute resp failure: cont oxygen #2 acute on chronic systolic/diastolic heart failure: lasix iv #3 severe aortic stenosis: c angio today #4 htn #5 dementia #6 cad s/p pci #7 copd ? exacerbation #8 nstemi ?type 2 #9 tobacco abuse: advised to quit, refused nicotine patch- time spent 11 mins #10 encephalopathy ?metabolic transfer to [place]/higher level of care for critical aortic stenosis advance care planning- full code- time spent 19 mins Plan discussed with: Other (rn) My Orders My Orders Orders - ARTEMIO HARLEY MD Procedure Category Date Status Time Albuterol Medneb PHA 12/24/24 In Process (Ventolin Medneb) 12:00 Ipratropium Medneb PHA 12/24/24 In Process (Atrovent Medneb) 12:00 Consistent DIET 12/24/24 Transmitted Carb(Ccho)Diabetes Dinner Basic Metabolic Panel LAB 12/26/24 Verified 06:00 Magnesium LAB 12/26/24 Verified 05:00 Dietary Evaluation Review Comments: 1) Consider changing 60g CCHO diet to cardiac NCS diet d/t advanced age and controlled HbA1c 2) Encourage optimal PO intake 3) Follow-up with cardiology and pulmonology 4) Continue to monitor I&O, labs, and skin integrity Expected Outcomes/Goals: 1) appetite and labs to improve 2) f/u in 3-5 days Date of Service: Dec 25, 2024 Billing Provider: ARTEMIO HARLEY MD Common Visit Codes: [id number] INP/OBS CARE(HIGH) ARTEMIO HARLEY MD Dec 25, 2024 09:54
[2024-12-25] MEDS: VERAPAMIL 2.5MG/ML INJ 2ML VIAL IV ONE (10:53)
[2024-12-25] MEDS: HEPARIN SODIUM (PORCINE) 5000 UNITS/ML 1ML VIAL ONE (10:54)
[2024-12-25] MEDS: fentaNYL CITRATE 100 MCG/2 ML VL ONE (10:54)
[2024-12-25] MEDS: MIDAZOLAM HCL 2MG/2ML 2ml VIAL (1mg/ml) ONE (10:54)
[2024-12-25] MEDS: IODIXANOL 320MG/ML 100ML BTL IV ONE (10:54)
[2024-12-25] MEDS: LIDOCAINE 2%HCL (LOCAL ANESTH.) INJ 20ML MDV ONE (10:54)
[2024-12-25] MEDS: ANGIOMAX 250 MG VIAL IV ONE (10:55)
[2024-12-25] MEDS: SODIUM CHL 0.9% 0 ML ONE (10:55)
--- NOTE | 2024-12-25 11:18 | DVHPN2 ---
Progress Note Date Seen: Dec 25, 2024 Medical Necessity Reason Pt with a Central, PICC or Fol: No Subjective Patient reports: Feels better Objective vital signs Vital Sign Date Time Temp Pulse Resp B/P (MAP) Pulse Ox O2 Delivery O2 Flow Rate FiO2 12/25/24 09:00 97.7 57 17 108/49 (68) 93 97.7 12/25/24 08:00 Room Air* 0 21 Total Intake and Output 12/24/24 12/24/24 12/25/24 15:00 23:00 07:00 Intake Total 240 ml 0 ml Balance 240 ml 0 ml medications Current Medications Medications Dose Ordered Sig/Jeff Route Start Time Stop Time Status Last Admin Dose Admin Carvedilol 3.125 mg Q12HR PO 12/17/24 10:00 12/21/24 10:13 3.125 MG Famotidine 20 mg Q12HR IV 12/17/24 10:00 UNV Dextrose 50 ml UD PRN IV 12/17/24 02:15 Sodium Chloride 10 ml Q8HR IV 12/17/24 06:00 12/25/24 05:57 10 ML Acetaminophen/ Hydrocodone Bitart 1 tab Q4HP PRN PO 12/17/24 02:15 Ondansetron HCl 4 mg Q4HP PRN IV 12/17/24 02:15 Docusate Sodium 100 mg BIDPRN PRN PO 12/17/24 02:15 Acetaminophen 650 mg Q6HP PRN PO 12/17/24 02:15 Nitroglycerin 0.4 mg Q5MINP PRN SL 12/17/24 02:15 Morphine Sulfate 2 mg Q30M PRN IV 12/17/24 02:15 Losartan Potassium 25 mg DAILY PO 12/17/24 10:12/24/24 10:00 25 MG Furosemide 40 mg DAILY IV 12/17/24 10:00 12/24/24 10:00 40 MG Pantoprazole Sodium 40 mg DAILY@0600 PO 12/18/24 06:00 12/19/24 05:43 40 MG Enoxaparin Sodium 40 mg DAILY SC 12/18/24 10:00 12/24/24 10:00 40 MG Aspirin 81 mg DAILY PO 12/18/24 10:00 12/24/24 10:00 81 MG Atorvastatin Calcium 40 mg HS PO 12/17/24 22:00 12/24/24 21:44 40 MG Potassium Bicarbonate 25 meq DAILY PO 12/22/24 10:00 12/24/24 10:00 25 MEQ Albuterol [address] [facility] 12/24/24 12:00 12/25/24 07:00 2.5 MG Ipratropium [place] 0.[address] [facility] 12/24/24 12:00 12/25/24 07:00 0.5 MG Examination: GENERAL:Abnormal, HEENT:Abnormal, LUNGS:Abnormal, CVS:Abnormal, ABDOMEN:Abnormal laboratory and microbiology Laboratory Tests 12/25/24 05:01 Test 12/25/24 05:01 Range/Units Serum Glucose 96 74-106 mg/dL Problem List/Assessment/Plan Problem List/Assessment/Plan severe sob ckd htn nstemi [facility] tomorrow pt needs close eventual fu with [facility], she was dx with severe 2 years ago but has no eval with [facility] she is aware of , mild cad non critical recommend tavr eval with [facility] in/outpt fu dr daniela ellington recs will sign off Plan discussed with: Patient My Orders My Orders Orders - ELY YOUNGBLOOD MD Procedure Category Date Status Time Cl Left Heart Cath CL 12/25/24 Taken 07:29 Dietary Evaluation Review Comments: 1) Consider changing 60g CCHO diet to cardiac NCS diet d/t advanced age and controlled HbA1c 2) Encourage optimal PO intake 3) Follow-up with cardiology and pulmonology 4) Continue to monitor I&O, labs, and skin integrity Expected Outcomes/Goals: 1) appetite and labs to improve 2) f/u in 3-5 days Date of Service: Dec 25, 2024 Billing Provider: ELY YOUNGBLOOD MD Common Visit Codes: NOT BILLABLE ELY YOUNGBLOOD MD Dec 25, 2024 11:17
--- NOTE | 2024-12-25 11:19 | DVHOP2 ---
Operative Report Operative Report [facility]ARD[facility] HEALTH AND SOCIAL CARE TEACHER PROCEDURE REPORT [place], [place] Date of Service: 12/25/24 Syrup Filterer: Ely Mann MD PROCEDURES PERFORMED: Coronary angiogram conscious sedation administration and supervision, less than 15 minutes; fluoroscopy use and interpretation. PREOPERATIVE DIAGNOSES: severe POSTOP DIAGNOSIS: severe DESCRIPTION OF PROCEDURE: The patient or appropriate family signed informed consent understanding the risks, benefits and alternatives of the procedure, they wished to proceed. The patient was brought to the cardiac animal laboratory helper in n.p.o. state. The patient was prepped in a sterile fashion. Sedation was used per cardiac cath protocol. I administered 2 mL of 2% lidocaine to the right wrist. With an antegrade front wall puncture. I cannulated the right radial artery and placed a 6-Sami Glidesheath slender. Next, an intra-arterial spasmolytic was NOT administered given low BP and . Next, a - 5French [place] catheter a used for coronary angiogram At the completion of procedure, all guides and wires were removed, and there were no immediate complications.1000 U of IV heparin given given frailty. FINDINGS: RCA: Large dominant vessel off the right sinus of Valsalva, there is no severe flow limiting stenosis. LEFT MAIN: Moderate size left main, it bifurcates into LAD and circumflex. 10% mid vessel stenosis. CIRCUMFLEX: small to Moderate caliber vessel coming off the left main with no flow limiting stenosis. LAD: LAD is a moderate caliber vessel coming of the left main. there is mild prox to mid stenosis . distal LAD is patent. mild plaquing in Diag branches. CONCLUSIONS: 1. non critical CAD PLAN: Aggressive risk factor modification and medical management for the patient. TAVR ELY Ramesh MD Dec 25, 2024 11:19
--- NOTE | 2024-12-25 23:03 | DVHPN2 ---
Progress Note - Dictate Date Seen: Dec 25, 2024 Medical Necessity Reason Pt with a Central, PICC or Fol: No Subjective Patient was seen and evaluated in follow up. Patient is on 2 LPM NC. Patient underwent coronary angiogram which showed non critical CAD. Aggressive risk factor modification and medical management for the patient. TAVR eval. WBC 4.1, PTT 34.7, CO2 32. Telemetry reviewed. vital signs Vital Sign Date Time Temp Pulse Resp B/P (MAP) Pulse Ox O2 Delivery O2 Flow Rate FiO2 12/25/24 13:08 98.2 52 14 84/63 (70) 95 98.2 12/25/24 12:44 Nasal Cannula 2.0 12/25/24 12:44 28 Total Intake and Output 12/24/24 12/24/24 12/25/24 15:00 23:00 07:00 Intake Total 240 ml 0 ml Balance 240 ml 0 ml medications Current Medications Medications Dose Ordered Sig/Jeff Route Start Time Stop Time Status Last Admin Dose Admin Carvedilol 3.125 mg Q12HR PO 12/17/24 10:00 12/21/24 10:13 3.125 MG Famotidine 20 mg Q12HR IV 12/17/24 10:00 UNV Dextrose 50 ml UD PRN IV 12/17/24 02:15 Sodium Chloride 10 ml Q8HR IV 12/17/24 06:00 12/25/24 05:57 10 ML Acetaminophen/ Hydrocodone Bitart 1 tab Q4HP PRN PO 12/17/24 02:15 Ondansetron HCl 4 mg Q4HP PRN IV 12/17/24 02:15 Docusate Sodium 100 mg BIDPRN PRN PO 12/17/24 02:15 Acetaminophen 650 mg Q6HP PRN PO 12/17/24 02:15 Nitroglycerin 0.4 mg Q5MINP PRN SL 12/17/24 02:15 Morphine Sulfate 2 mg Q30M PRN IV 12/17/24 02:15 Losartan Potassium 25 mg DAILY PO 12/17/24 10:00 12/24/24 10:00 25 MG Furosemide 40 mg DAILY IV 12/17/24 10:00 12/24/24 10:00 40 MG Pantoprazole Sodium 40 mg DAILY@0600 PO 12/18/24 06:00 12/19/24 05:43 40 MG Enoxaparin Sodium 40 mg DAILY SC 12/18/24 10:00 12/24/24 10:00 40 MG Aspirin 81 mg DAILY PO 12/18/24 10:00 12/24/24 10:00 81 MG Atorvastatin Calcium 40 mg HS PO 12/17/24 22:00 12/24/24 21:44 40 MG Potassium Bicarbonate 25 meq DAILY PO 12/22/24 10:00 12/24/24 10:00 25 MEQ Albuterol 2.5 mg Q6HWA [facility] 12/24/24 12:00 12/25/24 12:44 2.5 MG Ipratropium [place] 0.5 mg Q6HWA [facility] 12/24/24 12:00 12/25/24 12:44 0.5 MG objective GENERAL: Alert and oriented x 3. No acute distress. EYES: PERRL, EOMI. Anicteric. HENT: Moist mucous membranes. LUNGS: Clear to auscultation bilaterally. CARDIOVASCULAR: Regular rate and rhythm. ABDOMEN: Soft, nontender and nondistended. EXTREMITIES: No edema. NEUROLOGIC: No focal neurological deficits. SKIN: Warm, dry. laboratory and microbiology Laboratory Tests 12/25/24 05:01 Test 12/25/24 05:01 Range/Units Serum Glucose 96 74-106 mg/dL Problem List Elevated troponin. Chest pain. Acute respiratory failure. Acute on chronic systolic/diastolic heart failure. HTN. CAD s/p PCI. Dementia. COPD. Tobacco abuse. Encephalopathy. Assessment/Plan Continued all current supportive medical care. Nitro SL. Nebulized breathing treatments. Morphine and [place] for pain management. Additional plan as per the hospital course. A total of 25 minutes was spent reviewing the patient record, examining the patient, making a diagnostic and therapeutic plan, discussing this plan with medical personnel, following up on diagnostic studies and following the patient for clinical stability excluding any and all procedures. At least 50% of this time was spent in direct, [id number] contact. Dietary Evaluation Review Comments: 1) Consider changing 60g CCHO diet to cardiac NCS diet d/t advanced age and controlled HbA1c 2) Encourage optimal PO intake 3) Follow-up with cardiology and pulmonology 4) Continue to monitor I&O, labs, and skin integrity Expected Outcomes/Goals: 1) appetite and labs to improve 2) f/u in 3-5 days Plan discussed with: Patient RUTH BRODY MD Dec 25, 2024 13:50
[2024-12-26] VITALS (13 sets, daily range): BP systolic 115–128; BP diastolic 51–74; PULSE 44–72; RESP 14–19; TEMP 97.9–98.5; O2SAT 94–98
[2024-12-26 06:29] LABS: Anion Gap 10 (5-15); Carbon Dioxide 30 mmol/L (20-31); Chloride 105 mmol/L (98-107); Potassium 3.8 mmol/L (3.5-5.1); Sodium 145 mmol/L (136-145)
[2024-12-26 06:30] LABS: Calcium 9.5 mg/dL (8.7-10.4)
[2024-12-26 06:35] LABS: BUN/Creatinine Ratio 13.5 (10.0-20.0); Blood Urea Nitrogen 10 mg/dL (9-23); Glucose 104 mg/dL (74-106)
[2024-12-26 06:36] LABS: Magnesium 2.0 mg/dL (1.6-2.6)
--- NOTE | 2024-12-26 10:09 | DVHPN2 ---
Progress Note Date Seen: Dec 26, 2024 Medical Necessity Reason Pt with a Central, PICC or Fol: No Subjective Patient reports: No new complaints Review of Systems: HEENT:Normal, CVS:Normal, RESPIRATORY:Normal, GI:Normal, :Normal, MSK:Normal, NEURO:Normal Objective vital signs Vital Sign Date Time Temp Pulse Resp B/P (MAP) Pulse Ox O2 Delivery O2 Flow Rate FiO2 12/26/24 09:31 118/57 12/26/24 09:30 58 12/26/24 09:00 97.9 18 98 97.9 12/26/24 07:51 Nasal Cannula* 2 28 Total Intake and Output 12/25/24 12/25/24 12/26/24 15:00 23:00 07:00 Intake Total 0 ml 325 ml Balance 0 ml 325 ml medications Current Medications Medications Dose Ordered Sig/Jeff Route Start Time Stop Time Status Last Admin Dose Admin Carvedilol 3.125 mg Q12HR PO 12/17/24 10:00 12/21/24 10:13 3.125 MG Famotidine 20 mg Q12HR IV 12/17/24 10:00 UNV Dextrose 50 ml UD PRN IV 12/17/24 02:15 Sodium Chloride 10 ml Q8HR IV 12/17/24 06:00 12/26/24 05:57 10 ML Ondansetron HCl 4 mg Q4HP PRN IV 12/17/24 02:15 Docusate Sodium 100 mg BIDPRN PRN PO 12/17/24 02:15 Acetaminophen 650 mg Q6HP PRN PO 12/17/24 02:15 Nitroglycerin 0.4 mg Q5MINP PRN SL 12/17/24 02:15 Losartan Potassium 25 mg DAILY PO 12/17/24 10:00 12/24/24 10:00 25 MG Furosemide 40 mg DAILY IV 12/17/24 10:00 12/26/24 09:21 40 MG Pantoprazole Sodium 40 mg DAILY@0600 PO 12/18/24 06:00 12/19/24 05:43 40 MG Enoxaparin Sodium 40 mg DAILY SC 12/18/24 10:00 12/26/24 09:11 40 MG Aspirin 81 mg DAILY PO 12/18/24 10:00 12/26/24 09:14 81 MG Atorvastatin Calcium 40 mg HS PO 12/17/24 22:00 12/24/24 21:44 40 MG Potassium Bicarbonate 25 meq DAILY PO 12/22/24 10:00 12/26/24 09:14 25 MEQ Albuterol 2.5 mg Q6HWA [facility] 12/24/24 12:00 12/26/24 07:51 2.5 MG Ipratropium [place] 0.5 mg Q6HWA [facility] 12/24/24 12:00 12/26/24 07:51 0.5 MG Examination: GENERAL:Normal, HEENT:Normal, NECK:Normal, LUNGS:Normal, CVS:Normal, ABDOMEN:Normal, MSK:Normal, SKIN:Normal, NEURO:Normal, :Normal laboratory and microbiology Laboratory Tests 12/26/24 04:54 12/25/24 05:01 Test 12/26/24 04:54 Range/Units Serum Glucose 104 74-106 mg/dL Problem List/Assessment/Plan Problem List/Assessment/Plan #1 acute resp failure: cont oxygen #2 acute on chronic systolic/diastolic heart failure: lasix iv #3 severe aortic stenosis: needs TAVR #4 htn #5 dementia #6 cad s/p pci #7 copd ? exacerbation #8 nstemi ?type 2 #9 tobacco abuse: advised to quit, refused nicotine patch- time spent 11 mins #10 encephalopathy ?metabolic transfer to [place] level of care for critical aortic stenosis advance care planning- full code- time spent 19 mins Plan discussed with: Patient My Orders My Orders Orders - ARTEMIO HARLEY MD Procedure Category Date Status Time Discharge DISCHARGE 12/26/24 Verified 10:05 * Ton Container Filler CONS 12/26/24 Verified Consult Dietary Evaluation Review Comments: 1) Consider changing 60g CCHO diet to cardiac NCS diet d/t advanced age and controlled HbA1c 2) Encourage optimal PO intake 3) Follow-up with cardiology and pulmonology 4) Continue to monitor I&O, labs, and skin integrity Expected Outcomes/Goals: 1) appetite and labs to improve 2) f/u in 3-5 days Date of Service: Dec 26, 2024 Billing Provider: ARTEMIO HARLEY MD Common Visit Codes: [id number] INP/OBS CARE(HIGH) ARTEMIO HARLEY MD Dec 26, 2024 10:09
--- NOTE | 2024-12-26 21:14 | DVHPN2 ---
Progress Note - Dictate Date Seen: Dec 26, 2024 Medical Necessity Reason Pt with a Central, PICC or Fol: No Subjective Patient was seen and evaluated in follow up. Patient is on 2 LPM NC. Patient is pending transfer to [facility] for OC. CBC is WNL. Telemetry reviewed. vital signs Vital Sign Date Time Temp Pulse Resp B/P (MAP) Pulse Ox O2 Delivery O2 Flow Rate FiO2 12/26/24 12:47 98.5 64 18 121/51 (74) 94 98.5 12/26/24 08:00 Nasal Cannula* 2 28 Total Intake and Output 12/25/24 12/25/24 12/26/24 15:00 23:00 07:00 Intake Total 0 ml 325 ml Balance 0 ml 325 ml medications Current Medications Medications Dose Ordered Sig/Jeff Route Start Time Stop Time Status Last Admin Dose Admin Carvedilol 3.125 mg Q12HR PO 12/17/24 10:00 12/21/24 10:13 3.125 MG Famotidine 20 mg Q12HR IV 12/17/24 10:00 UNV Dextrose 50 ml UD PRN IV 12/17/24 02:15 Sodium Chloride 10 ml Q8HR IV 12/17/24 06:00 12/26/24 13:18 10 ML Ondansetron HCl 4 mg Q4HP PRN IV 12/17/24 02:15 Docusate Sodium 100 mg BIDPRN PRN PO 12/17/24 02:15 Acetaminophen 650 mg Q6HP PRN PO 12/17/24 02:15 Nitroglycerin 0.4 mg Q5MINP PRN SL 12/17/24 02:15 Losartan Potassium 25 mg DAILY PO 12/17/24 10:12/24/24 10:00 25 MG Furosemide 40 mg DAILY IV 12/17/24 10:00 12/26/24 09:21 40 MG Pantoprazole Sodium 40 mg DAILY@0600 PO 12/18/24 06:00 12/19/24 05:43 40 MG Enoxaparin Sodium 40 mg DAILY SC 12/18/24 10:00 12/26/24 09:11 40 MG Aspirin 81 mg DAILY PO 12/18/24 10:00 12/26/24 09:14 81 MG Atorvastatin Calcium 40 mg HS PO 12/17/24 22:00 12/24/24 21:44 40 MG Potassium Bicarbonate 25 meq DAILY PO 12/22/24 10:00 12/26/24 09:14 25 MEQ Albuterol 2.5 mg Q6HWA [facility] 12/24/24 12:00 12/26/24 07:51 2.5 MG Ipratropium [place] 0.5 mg Q6HWA [facility] 12/24/24 12:00 12/26/24 07:51 0.5 MG objective GENERAL: Alert and oriented x 3. No acute distress. EYES: PERRL, EOMI. Anicteric. HENT: Moist mucous membranes. LUNGS: Clear to auscultation bilaterally. CARDIOVASCULAR: Regular rate and rhythm. ABDOMEN: Soft, nontender and nondistended. EXTREMITIES: No edema. NEUROLOGIC: No focal neurological deficits. SKIN: Warm, dry. laboratory and microbiology Laboratory Tests 12/26/24 04:54 12/25/24 05:01 Test 12/26/24 04:54 Range/Units Serum Glucose 104 74-106 mg/dL Problem List Elevated troponin. Chest pain. Acute respiratory failure. Acute on chronic systolic/diastolic heart failure. HTN. CAD s/p PCI. Dementia. COPD. Tobacco abuse. Encephalopathy. Assessment/Plan Continued all current supportive medical care. Nitro SL. Aspirin. Diuretics with Lasix. Tylenol for pain management. Additional plan as per the hospital course. A total of 25 minutes was spent reviewing the patient record, examining the patient, making a diagnostic and therapeutic plan, discussing this plan with medical personnel, following up on diagnostic studies and following the patient for clinical stability excluding any and all procedures. At least 50% of this time was spent in direct, [id number] contact. Dietary Evaluation Review Comments: 1) Consider changing 60g CCHO diet to cardiac NCS diet d/t advanced age and controlled HbA1c 2) Encourage optimal PO intake 3) Follow-up with cardiology and pulmonology 4) Continue to monitor I&O, labs, and skin integrity Expected Outcomes/Goals: 1) appetite and labs to improve 2) f/u in 3-5 days Plan discussed with: Patient RUTH BRODY MD Dec 26, 2024 13:33
[2024-12-27] VITALS (7 sets, daily range): BP systolic 101–124; BP diastolic 57–67; PULSE 43–87; RESP 16–18; TEMP 97.5–98.2; O2SAT 91–98
--- NOTE | 2024-12-27 10:18 | DVHPN2 ---
Progress Note Date Seen: Dec 27, 2024 Medical Necessity Reason Pt with a Central, PICC or Fol: No Subjective Patient reports: No new complaints Review of Systems: HEENT:Normal, CVS:Normal, RESPIRATORY:Normal, GI:Normal, :Normal, MSK:Normal, NEURO:Normal Objective vital signs Vital Sign Date Time Temp Pulse Resp B/P (MAP) Pulse Ox O2 Delivery O2 Flow Rate FiO2 12/27/24 09:51 88/59 12/27/24 09:51 61 12/27/24 09:00 98.2 18 91 98.2 12/27/24 08:00 Nasal Cannula* 2 28 Total Intake and Output 12/26/24 12/26/24 12/27/24 15:00 23:00 07:00 Intake Total 850 ml 800 ml Balance 850 ml 800 ml medications Current Medications Medications Dose Ordered Sig/Jeff Route Start Time Stop Time Status Last Admin Dose Admin Carvedilol 3.125 mg Q12HR PO 12/17/24 10:00 12/21/24 10:13 3.125 MG Famotidine 20 mg Q12HR IV 12/17/24 10:00 UNV Dextrose 50 ml UD PRN IV 12/17/24 02:15 Sodium Chloride 10 ml Q8HR IV 12/17/24 06:00 12/27/24 05:29 10 ML Ondansetron HCl 4 mg Q4HP PRN IV 12/17/24 02:15 Docusate Sodium 100 mg BIDPRN PRN PO 12/17/24 02:15 Acetaminophen 650 mg Q6HP PRN PO 12/17/24 02:15 Nitroglycerin 0.4 mg Q5MINP PRN SL 12/17/24 02:15 Losartan Potassium 25 mg DAILY PO 12/17/24 10:00 12/24/24 10:00 25 MG Furosemide 40 mg DAILY IV 12/17/24 10:00 12/26/24 09:21 40 MG Pantoprazole Sodium 40 mg DAILY@0600 PO 12/18/24 06:00 12/27/24 05:29 40 MG Enoxaparin Sodium 40 mg DAILY SC 12/18/24 10:00 12/26/24 09:11 40 MG Aspirin 81 mg DAILY PO 12/18/24 10:00 12/27/24 09:51 81 MG Atorvastatin Calcium 40 mg HS PO 12/17/24 22:00 12/26/24 21:01 40 MG Potassium Bicarbonate 25 meq DAILY PO 12/22/24 10:00 12/27/24 09:52 25 MEQ Albuterol 2.5 mg Q6HWA [facility] 12/24/24 12:00 12/27/24 07:42 2.5 MG Ipratropium [place] 0.5 mg Q6HWA [facility] 12/24/24 12:00 12/27/24 07:42 0.5 MG Examination: GENERAL:Normal, HEENT:Normal, NECK:Normal, LUNGS:Normal, CVS:Normal, ABDOMEN:Normal, MSK:Normal, SKIN:Normal, NEURO:Normal, :Normal laboratory and microbiology Laboratory Tests 12/26/24 04:54 12/25/24 05:01 Test 12/26/24 04:54 Range/Units Serum Glucose 104 74-106 mg/dL Problem List/Assessment/Plan Problem List/Assessment/Plan #1 acute resp failure: cont oxygen #2 acute on chronic systolic/diastolic heart failure: lasix iv #3 severe aortic stenosis: needs TAVR #4 htn #5 dementia #6 cad s/p pci #7 copd ? exacerbation #8 nstemi ?type 2 #9 tobacco abuse: advised to quit, refused nicotine patch- time spent 11 mins #10 encephalopathy ?metabolic transfer to [place] level of care for critical aortic stenosis/tavr advance care planning- full code- time spent 19 mins Plan discussed with: Patient Dietary Evaluation Review Comments: 1) Consider changing 60g CCHO diet to cardiac NCS diet d/t advanced age and controlled HbA1c 2) Encourage optimal PO intake 3) Follow-up with cardiology and pulmonology 4) Continue to monitor I&O, labs, and skin integrity Expected Outcomes/Goals: 1) appetite and labs to improve 2) f/u in 3-5 days Date of Service: Dec 27, 2024 Billing Provider: ARTEMIO HARLEY MD Common Visit Codes: [id number] INP/OBS CARE(HIGH) ARTEMIO HARLYE MD Dec 27, 2024 10:18
--- NOTE | 2024-12-27 22:53 | DVHPN2 ---
Progress Note - Dictate Date Seen: Dec 27, 2024 Medical Necessity Reason Pt with a Central, PICC or Fol: No Subjective Patient was seen and evaluated in follow up. Patient is resting in bed. Patient is on 2 LPM NC. Per CM, patient has been accepted to [facility]. Telemetry reviewed. vital signs Vital Sign Date Time Temp Pulse Resp B/P (MAP) Pulse Ox O2 Delivery O2 Flow Rate FiO2 12/27/24 09:51 88/59 12/27/24 09:51 61 12/27/24 09:00 98.2 18 91 98.2 12/27/24 08:00 Nasal Cannula* 2 28 Total Intake and Output 12/26/24 12/26/24 12/27/24 15:00 23:00 07:00 Intake Total 850 ml 800 ml Balance 850 ml 800 ml medications Current Medications Medications Dose Ordered Sig/Jeff Route Start Time Stop Time Status Last Admin Dose Admin Carvedilol 3.125 mg Q12HR PO 12/17/24 10:00 12/21/24 10:13 3.125 MG Famotidine 20 mg Q12HR IV 12/17/24 10:00 UNV Dextrose 50 ml UD PRN IV 12/17/24 02:15 Sodium Chloride 10 ml Q8HR IV 12/17/24 06:00 12/27/24 05:29 10 ML Ondansetron HCl 4 mg Q4HP PRN IV 12/17/24 02:15 Docusate Sodium 100 mg BIDPRN PRN PO 12/17/24 02:15 Acetaminophen 650 mg Q6HP PRN PO 12/17/24 02:15 Nitroglycerin 0.4 mg Q5MINP PRN SL 12/17/24 02:15 Losartan Potassium 25 mg DAILY PO 12/17/24 10:00 12/24/24 10:00 25 MG Furosemide 40 mg DAILY IV 12/17/24 10:00 12/26/24 09:21 40 MG Pantoprazole Sodium 40 mg DAILY@0600 PO 12/18/24 06:00 12/27/24 05:29 40 MG Enoxaparin Sodium 40 mg DAILY SC 12/18/24 10:00 12/26/24 09:11 40 MG Aspirin 81 mg DAILY PO 12/18/24 10:00 12/27/24 09:51 81 MG Atorvastatin Calcium 40 mg HS PO 12/17/24 22:00 12/26/24 21:01 40 MG Potassium Bicarbonate 25 meq DAILY PO 12/22/24 10:00 12/27/24 09:52 25 MEQ Albuterol 2.5 mg Q6HWA [facility] 12/24/24 12:00 12/27/24 07:42 2.5 MG Ipratropium [place] 0.5 mg Q6HWA [facility] 12/24/24 12:00 12/27/24 07:42 0.5 MG objective GENERAL: Alert and oriented x 3. No acute distress. EYES: PERRL, EOMI. Anicteric. HENT: Moist mucous membranes. LUNGS: Clear to auscultation bilaterally. CARDIOVASCULAR: Regular rate and rhythm. ABDOMEN: Soft, nontender and nondistended. EXTREMITIES: No edema. NEUROLOGIC: No focal neurological deficits. SKIN: Warm, dry. laboratory and microbiology Laboratory Tests 12/26/24 04:54 12/25/24 05:01 Test 12/26/24 04:54 Range/Units Serum Glucose 104 74-106 mg/dL Problem List Elevated troponin. Chest pain. Acute respiratory failure. Acute on chronic systolic/diastolic heart failure. HTN. CAD s/p PCI. Dementia. COPD. Tobacco abuse. Encephalopathy. Assessment/Plan Continued all current supportive medical care. Nitro SL. Aspirin. Nebulized breathing treatments. Tylenol for pain management. Additional plan as per the hospital course. A total of 25 minutes was spent reviewing the patient record, examining the patient, making a diagnostic and therapeutic plan, discussing this plan with medical personnel, following up on diagnostic studies and following the patient for clinical stability excluding any and all procedures. At least 50% of this time was spent in direct, [id number] contact. Dietary Evaluation Review Comments: 1) Consider changing 60g CCHO diet to cardiac NCS diet d/t advanced age and controlled HbA1c 2) Encourage optimal PO intake 3) Follow-up with cardiology and pulmonology 4) Continue to monitor I&O, labs, and skin integrity Expected Outcomes/Goals: 1) appetite and labs to improve 2) f/u in 3-5 days Plan discussed with: Patient RUTH BRODY MD Dec 27, 2024 12:05
== END 2024-12-27 14:00 | disposition short-term general hospital (02) | DRG 280 ==
LOC: ER 20:52 → OVERFLOW 12-17 02:05 → TELE-CENTR 12-17 22:27
PROVIDERS: ADMIT Internal Medicine; ATTEND Internal Medicine
PROC: B211YZZ Fluoroscopy of Multiple Coronary Arteries using Other Contrast (ICD-10-PCS; principal; 2024-12-25)
DX: I11.0 Hypertensive heart disease with heart failure (principal); G93.41 Metabolic encephalopathy; I21.A1 Myocardial infarction type 2; I50.43 Acute on chronic combined systolic (congestive) and diastolic (congestive) heart failure; J96.01 Acute respiratory failure with hypoxia; E87.6 Hypokalemia; F03.90 Unspecified dementia, unspecified severity, without behavioral disturbance, psychotic disturbance, mood disturbance, and anxiety; I25.10 Atherosclerotic heart disease of native coronary artery without angina pectoris; I35.0 Nonrheumatic aortic (valve) stenosis; J44.9 Chronic obstructive pulmonary disease, unspecified; Z98.61 Coronary angioplasty status; E11.9 Type 2 diabetes mellitus without complications; E78.5 Hyperlipidemia, unspecified; F17.210 Nicotine dependence, cigarettes, uncomplicated; I25.2 Old myocardial infarction; Z79.899 Other long term (current) drug therapy
CPT/HCPCS: 36415; 71045; 80048; 80053; 81001; 82607; 82962; 83036; 83735; 83880; 84443; 84484; 85025; 85610; 85730; 93005; 93306; 93454; 94640; 96374; 99152; 99291; 99292; G0378; J1815; J2250; J2405; J3480; J3490; Q9967